=== PATIENT | female | born 1950 | race Caucasian/White ===

== ENCOUNTER → 2019-06-01 | Outpatient (CLI) | payer MEDICARE ==
[2019-06-01 20:32] LABS: Chol/HDL Ratio 3.68; LDL Cholesterol,Calculated 158.8 mg/dL (0.0-131.0); VLDL Calculation 18.2 mg/dL (5.00-40.00)
== END | disposition home or self-care (01) ==
LOC: LABWHC1 10:50
PROVIDERS: ATTEND Internal Medicine Clinical Cardiac Electrophysiology
DX: E78.5 Hyperlipidemia, unspecified (principal)
CPT/HCPCS: 36415; 80061

== ENCOUNTER 2021-03-22 17:44 | Inpatient (IN) | payer MEDICARE ==
[2021-03-22] MEDS ORDERED: SODIUM CHLORIDE 0.9% 1,000 ML IV ONE (18:07)
[2021-03-22] MEDS ORDERED: MORPHINE SULFATE 2 MG/ML SYRINGE IVP STA (18:18)
[2021-03-22 18:45] LABS: Basophils % (A) 0 %; Eosinophils # (A) 0.1 k/uL (0-0.7); Eosinophils % (A) 1 %; HCT 37.7 % (34.0-46.0); HGB 12.7 gm/dL (11.4-16.0); Lymphocytes # (A) 1.9 k/uL (1.0-4.8); Lymphocytes % (A) 13 %; MCHC 33.6 g/dL (31.0-37.0); MCV 92.3 fL (80.0-100.0); Monocytes # (A) 0.7 k/uL (0-1.0); Monocytes % (A) 5 %; Neutrophils # (A) 12.1 k/uL (1.3-7.7); Neutrophils % (A) 81 %; Platelet Count 254 k/uL (150-450); RBC 4.09 m/uL (3.80-5.40); RDW 12.4 % (11.5-15.5)
[2021-03-22 19:13] LABS: ALT 19 U/L (4-34); AST 23 U/L (14-36); African American GFR (CKD) >90 (>60 ml/min/1.73 sqM); Albumin 4.1 g/dL (3.5-5.0); Alkaline Phosphatase 74 U/L (38-126); Anion Gap 12 mmol/L; Blood Urea Nitrogen 19 mg/dL (7-17); Calcium 9.4 mg/dL (8.4-10.2); Carbon Dioxide 21 mmol/L (22-30); Chloride 103 mmol/L (98-107); Glucose 105 mg/dL (74-99); Non-African American GFR(CKD) 87 (>60 ml/min/1.73 sqM); Potassium 3.8 mmol/L (3.5-5.1); Sodium 136 mmol/L (137-145); Total Bilirubin 0.7 mg/dL (0.2-1.3); Total Protein 7.2 g/dL (6.3-8.2)
--- NOTE | 2021-03-22 19:16 | CT ---
EXAMINATION TYPE: CT brain wo con DATE OF EXAM: 03/22/2021 COMPARISON: None HISTORY: Altered mental status. CT DLP: 1074.4 mGycm Automated exposure control for dose reduction was used. There is some mild enlargement of the ventricles. There is no mass effect nor midline shift. There is no sign of intracranial hemorrhage. Calvarium is intact. There is mild thalamic calcification. Skull base is intact. IMPRESSION: Mild hydrocephalus. No obstructing lesion seen.
[2021-03-22 19:17] LABS: Partial Thromboplastin Time 22.8 sec (22.0-30.0); Prothrombin Time 10.4 sec (9.0-12.0)
--- NOTE | 2021-03-22 19:17 | XR ---
EXAMINATION TYPE: XR chest 2V DATE OF EXAM: 03/22/2021 COMPARISON: NONE HISTORY: Altered mental status. Confusion. TECHNIQUE: 2 views FINDINGS: Heart and mediastinum are normal. Lungs are clear. Diaphragm is normal. Bony thorax is inta ct. IMPRESSION: Normal chest.
[2021-03-22 21:50] LABS: Appearance,Urine Clear (Clear); Bilirubin,Urine Negative (Negative); Blood,Urine Negative (Negative); Color,Urine Yellow; Glucose,Urine (UA) Negative (Negative); Ketones,Urine 2+ (Negative); Leukocyte Esterase,Urine Negative (Negative); Nitrite,Urine Negative (Negative); Protein,Urine Negative (Negative); Specific Gravity,Urine 1.021 (1.001-1.035); Urobilinogen,Urine <2.0 mg/dL (<2.0)
[2021-03-22 22:09] LABS: Amphetamine Screen,Urine Not Detected (NotDetected); Barbiturate Screen,Urine Not Detected (NotDetected); Benzodiazepines Screen,Urine Detected (NotDetected); Cocaine Screen,Urine Not Detected (NotDetected); Methadone Screen, Urine Not Detected (NotDetected); Opiate Screen,Urine Detected (NotDetected); Oxycodone Screen, Urine Not Detected (NotDetected); Phencyclidine Screen,Urine Not Detected (NotDetected); Tricyclic Antidepressant,Urine Not Detected (NotDetected); Urn Cannabinoid Scrn Not Detected (NotDetected)
[2021-03-22] MEDS ORDERED: MORPHINE SULFATE 4 MG/ML SYRINGE IVP STA (22:37)
[2021-03-22] MEDS ORDERED: NALOXONE 0.4 MG/ML 1 ML VIAL IV PRN (22:56)
--- NOTE | 2021-03-22 22:56 | ED ---
Altered Mental Status HPI - General Chief Complaint: Altered Mental Status Stated Complaint: Falls Time Seen by Provider: 03/22/21 17:57 Source: family, EMS, RN notes reviewed Mode of arrival: EMS Limitations: no limitations - History of Present Illness Initial Comments: Patient is a 70-year-old female that presents to the emergency department via EMS for acute altered mental status with repeated falls. Patient is a poor historian and has to be coached through questions to get appropriate answers. She is alert 3 after some coaching. Daughter and both note the patient isn't compliant with taking her medications and is unsure if she has been taking more than prescribed or not taking them at all. Patient notes that she did hit her head several times when she fell. She denied taking any blood thinners. Patient does appear to be mildly confused upon exam. Patient denied any chest pain shortness of breath headache nausea vomiting diarrhea constipation fever fatigue chills. - Related Data Home Medications Medication Instructions Recorded Confirmed ALPRAZolam [Xanax] 1 mg PO TID PRN 03/22/21 03/22/21 Escitalopram [Lexapro] 10 mg PO DAILY 03/22/21 03/22/21 Omeprazole 40 mg PO DAILY 03/22/21 03/22/21 traZODone HCL 50 mg PO HS 03/22/21 03/22/21 Allergies Allergy/AdvReac Type Severity Reaction Status Date / Time No Known Allergies Allergy Verified 03/22/21 20:03 Review of Systems ROS Statement: Those systems with pertinent positive or pertinent negative responses have been documented in the HPI. ROS Other: All systems not noted in ROS Statement are negative. Past Medical History Past Medical History: Unable to Obtain History of Any Multi-Drug Resistant Organisms: None Reported Past Surgical History: Unable to Obtain Past Psychological History: No Psychological Hx Reported Smoking Status: Never smoker Past Alcohol Use History: None Reported Past Drug Use History: None Reported General Exam Limitations: no limitations General appearance: alert, in no apparent distress Head exam: Present: atraumatic, normocephalic, normal inspection Eye exam: Present: normal appearance, PERRL, EOMI. Absent: scleral icterus, conjunctival injection, periorbital swelling ENT exam: Present: normal exam, mucous membranes moist Neck exam: Present: normal inspection Respiratory exam: Present: normal lung sounds bilaterally. Absent: respiratory distress, wheezes, rales, rhonchi, stridor Cardiovascular Exam: Present: regular rate, normal rhythm, normal heart sounds. Absent: systolic murmur, diastolic murmur, rubs, gallop, clicks GI/Abdominal exam: Present: soft, normal bowel sounds. Absent: distended, tenderness, guarding, rebound, rigid Extremities exam: Present: normal inspection, full ROM, normal capillary refill. Absent: tenderness, pedal edema, joint swelling, calf tenderness Neurological exam: Present: alert. Absent: oriented X3 (Patient had a be coached through several questions to get correct answers.) Expanded Neurological exam: Present: inattentive Speech: Present: fluid speech Cranial nerves: EOM's Intact: Normal Cerebellar function: Finger to Nose: Normal, Heel to Franco: Normal Motor strength exam: RUE: 5, LUE: 5, RLE: 5, LLE: 5 Psychiatric exam: Present: normal affect, normal mood Skin exam: Present: warm, dry, intact, normal color. Absent: rash Course Vital Signs 03/22/21 17:50 Temperature 99 F Pulse Rate 69 Respiratory 18 Rate Blood Pressure 148/92 O2 Sat by Pulse 97 Oximetry Medical Decision Making - Medical Decision Making 70-year-old female to mental status with several falls over the past few days per Labs, chest x-ray, CT of the brain, 1 L normal saline ordered. Patient was given 2 mg of morphine for pain. Labs: White blood cells 15, rest labs unremarkable. Computed tomography scan shows mild hydrocephalus. Upon reevaluation patient is still confused. Daughter noted that she was making suicidal complaints EPS was notified. EPS will not admit. Case discussed with Dr. Vargas, patient will be admitted for acute altered mental status due to medication misuse. Dr. White was consulted and looks of the admit with neurology on consult. - Lab Data Result diagrams: 03/22/21 18:36 03/22/21 18:36 Lab Results 03/22/21 03/22/21 03/22/21 Range/Units 18:36 18:36 18:36 WBC 15.0 H (3.8-10.6) k/uL RBC 4.09 (3.80-5.40) m/uL Hgb 12.7 (11.4-16.0) gm/dL Hct 37.7 (34.0-46.0) % MCV 92.3 (80.0-100.0) fL MCH 31.0 (25.0-35.0) pg MCHC 33.6 (31.0-37.0) g/dL RDW 12.4 (11.5-15.5) % Plt Count 254 (150-450) k/uL MPV 9.0 Neutrophils % 81 % Lymphocytes % 13 % Monocytes % 5 % Eosinophils % 1 % Basophils % 0 % Neutrophils # 12.1 H (1.3-7.7) k/uL Lymphocytes # 1.9 (1.0-4.8) k/uL Monocytes # 0.7 (0-1.0) k/uL Eosinophils # 0.1 (0-0.7) k/uL Basophils # 0.0 (0-0.2) k/uL PT 10.4 (9.0-12.0) sec INR 1.0 (<1.2) APTT 22.8 (22.0-30.0) sec Sodium (137-145) mmol/L Potassium (3.5-5.1) mmol/L Chloride (98-107) mmol/L Carbon Dioxide (22-30) mmol/L Anion Gap mmol/L BUN (7-17) mg/dL Creatinine (0.52-1.04) mg/dL Est GFR (CKD-EPI)AfAm (>60 ml/min/1.73 sqM) Est GFR (CKD-EPI)NonAf (>60 ml/min/1.73 sqM) Glucose (74-99) mg/dL Calcium (8.4-10.2) mg/dL Total Bilirubin (0.2-1.3) mg/dL AST (14-36) U/L ALT (4-34) U/L Alkaline Phosphatase (38-126) U/L Troponin I (0.000-0.034) ng/mL Total Protein (6.3-8.2) g/dL Albumin (3.5-5.0) g/dL Urine Color Yellow Urine Appearance Clear (Clear) Urine pH 6.0 (5.0-8.0) Ur Specific [place] 1.021 (1.001-1.035) Urine Protein Negative (Negative) Urine Glucose (UA) Negative (Negative) Urine Ketones 2+ H (Negative) Urine Blood Negative (Negative) Urine Nitrite Negative (Negative) Urine Bilirubin Negative (Negative) Urine Urobilinogen <2.0 (<2.0) mg/dL Ur Leukocyte Esterase Negative (Negative) Urine Opiates Screen Detected H (NotDetected) Ur Oxycodone Screen Not Detected (NotDetected) Urine Methadone Screen Not Detected (NotDetected) Ur Propoxyphene Screen Not Detected (NotDetected) Ur Barbiturates Screen Not Detected (NotDetected) U Tricyclic Antidepress Not Detected (NotDetected) Ur Phencyclidine Scrn Not Detected (NotDetected) Ur Amphetamines Screen Not Detected (NotDetected) U Methamphetamines Scrn Not Detected (NotDetected) U Benzodiazepines Scrn Detected H (NotDetected) Urine Cocaine Screen Not Detected (NotDetected) U Marijuana (THC) Screen Not Detected (NotDetected) 03/22/21 03/22/21 Range/Units 18:36 18:36 WBC (3.8-10.6) k/uL RBC (3.80-5.40) m/uL Hgb (11.4-16.0) gm/dL Hct (34.0-46.0) % MCV (80.0-100.0) fL MCH (25.0-35.0) pg MCHC (31.0-37.0) g/dL RDW (11.5-15.5) % Plt Count (150-450) k/uL MPV Neutrophils % % Lymphocytes % % Monocytes % % Eosinophils % % Basophils % % Neutrophils # (1.3-7.7) k/uL Lymphocytes # (1.0-4.8) k/uL Monocytes # (0-1.0) k/uL Eosinophils # (0-0.7) k/uL Basophils # (0-0.2) k/uL PT (9.0-12.0) sec INR (<1.2) APTT (22.0-30.0) sec Sodium 136 L (137-145) mmol/L Potassium 3.8 (3.5-5.1) mmol/L Chloride 103 (98-107) mmol/L Carbon Dioxide 21 L (22-30) mmol/L Anion Gap 12 mmol/L BUN 19 H (7-17) mg/dL Creatinine 0.72 (0.52-1.04) mg/dL Est GFR (CKD-EPI)AfAm >90 (>60 ml/min/1.73 sqM) Est GFR (CKD-EPI)NonAf 87 (>60 ml/min/1.73 sqM) Glucose 105 H (74-99) mg/dL Calcium 9.4 (8.4-10.2) mg/dL Total Bilirubin 0.7 (0.2-1.3) mg/dL AST 23 (14-36) U/L ALT 19 (4-34) U/L Alkaline Phosphatase 74 (38-126) U/L Troponin I <0.012 (0.000-0.034) ng/mL Total Protein 7.2 (6.3-8.2) g/dL Albumin 4.1 (3.5-5.0) g/dL Urine Color Urine Appearance (Clear) Urine pH (5.0-8.0) Ur Specific [place] (1.001-1.035) Urine Protein (Negative) Urine Glucose (UA) (Negative) Urine Ketones (Negative) Urine Blood (Negative) Urine Nitrite (Negative) Urine Bilirubin (Negative) Urine Urobilinogen (<2.0) mg/dL Ur Leukocyte Esterase (Negative) Urine Opiates Screen (NotDetected) Ur Oxycodone Screen (NotDetected) Urine Methadone Screen (NotDetected) Ur Propoxyphene Screen (NotDetected) Ur Barbiturates Screen (NotDetected) U Tricyclic Antidepress (NotDetected) Ur Phencyclidine Scrn (NotDetected) Ur Amphetamines Screen (NotDetected) U Methamphetamines Scrn (NotDetected) U Benzodiazepines Scrn (NotDetected) Urine Cocaine Screen (NotDetected) U Marijuana (THC) Screen (NotDetected) - EKG Data -: EKG Interpreted by Me EKG shows normal: sinus rhythm Rate: normal EKG Comments: Ventricular rate 61 bpm, MN interval 146 ms, QRS duration 76 ms, QTC 442 ms, PRT axes 74/51/72. Normal sinus rhythm, normal ECG. - Radiology Data Radiology results: report reviewed, image reviewed Chest x-ray: Normal chest. CT of the brain: Mild hydrocephalus. No obstructing lesion seen. Disposition Clinical Impression: Altered mental status Disposition: ADMITTED IP TO THIS [facility] Condition: Stable Is patient prescribed a controlled substance at d/c from ED?: No Referrals: Harry Mora DO [Primary Care Provider] - 1-2 days Time of Disposition: 22:56
[2021-03-23] MEDS: SODIUM CHLORIDE 0.9% 1,000 ML IV SCH ×4 (02:21→23:01)
[2021-03-23] MEDS: ACETAMINOPHEN TAB 325 MG TAB PO PRN ×2 (09:08→16:54)
--- NOTE | 2021-03-23 10:55 | P.CNNES ---
History of Present Illness Consult date: 03/23/21 Requesting physician: Lb Williamson Reason for Consult: altered mental status History of Present Illness: This is a 70-year-old woman with history of hypertension, falls and bipolar, anxiety, depression who presented to the emergency department on 03/22/2021 for altered mental status and repeated falls. The history is obtained from patient's and her daughter who are at bedside. 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 He stated that the patient eventually notified him that she had a fall Tuesday and that according to the patient she had the new socks and it felt extremely slippery w hen she was walk-in and she her head that. As a result the patient's stated that she's been confused and repeating herself as well as having headache. Then the this past Tuesday the patient the had a fall in the bathroom and hit her head in that according to the but the patient de nied that. Patient stated that she's having pain over the left ankle from the fall but otherwise she denies any focal weakness. She had that previous falls in the past. According to the she has chronic neck pain. He feels her walking is unsteady after the fall. She is complaining of headache over the bilateral occipital region and she stated that the at the throbbing headache and that she feels like it has improved right now after getting the pain medication. Patient's the patient had the nausea as well as had episodes of vomiting. No fevers. No rash. No recent travels. No seizure history in the past or any seizure-like episodes recently. Patient denies of any urine incontinence or bowel incontinence. Patient states that she's doing well and she wants to go home. Patient is tangential as well as getting the history from the family was very difficult. Abdomen members stated that the patient either overdoses on medication or does not take her medication. She has a history of bipolar anal feel the patient is doing well from that perspective. Patient socially drinks alcohol and per the family she drinks just 1 drink a day. Denies uses any illicit drug use. She is on marijuana for her anxiety. She'll is on trazodone 50mg daily at bedtime, Lexapro 100 mg daily and Xanax 1 mg 3 times a day when necessary. Some of the workup in the hospital consisted of: Initial vital signs: Blood pressure 5 148/92, heart rate of 69, temperature of 99 Fahrenheit oral, respiratory of 18, pulse ox of 97% room air. Patient has been afebrile so far the in the ED. Initial white blood cell is 15.0 and it's predominantly neutrophilic. Sodium is 136, creatinine is 0.72, glucose is 105, calcium 9.4, AST 23, ALT of 19. Urinalysis is negative for urinary tract infection. Her drug screen is positive for opiates as well as benzos. Henriquez virus PCR was not detected. CT of the head is reported as mild hydrocephalus. No obstructing lesion seen. I personally reviewed the CT of the head and there is no intraparenchymal hemorrhage seen. There is no appreciable acute ischemia. Review of Systems Review of system: The 12 point system was reviewed and apparent positive and negative per HPI. Past Medical History Past Medical History: Unable to Obtain History of Any Multi-Drug Resistant Organisms: None Reported Past Surgical History: Unable to Obtain Past Psychological History: No Psychological Hx Reported Smoking Status: Never smoker Past Alcohol Use History: None Reported Past Drug Use History: None Reported Medications and Allergies Home Medications Medication Instructions Recorded Confirmed Type ALPRAZolam [Xanax] 1 mg PO TID PRN 03/22/21 03/22/21 History Escitalopram [Lexapro] 10 mg PO DAILY 03/22/21 03/22/21 History Omeprazole 40 mg PO DAILY 03/22/21 03/22/21 History traZODone HCL 50 mg PO HS 03/22/21 03/22/21 History Allergies Allergy/AdvReac Type Severity Reaction Status Date / Time No Known Allergies Allergy Verified 03/22/21 20:03 Physical Examination - Vital Signs Vital Signs: Vital Signs Temp Pulse Pulse Resp BP BP Pulse Ox 03/23/21 07:56 98.8 F 71 20 158/73 96 03/23/21 04:06 98.4 F 60 20 153/71 97 03/22/21 22:52 87 16 121/87 99 03/22/21 17:50 99 F 69 18 148/92 97 Intake and Output 03/22/21 03/23/21 03/23/21 22:59 06:59 14:59 Other: Voiding Method Toilet Weight 72.121 kg GENERAL: The patient is lying in bed and is mild to moderate acute distress. CHEST: The heart rate is regular rate rhythm. No murmurs to auscultation. No carotid bruit bilaterally. LUNG: Clear to auscultation bilaterally no wheezing noted throughout. Not labored breathing. ABDOMEN/GI: Bowel sounds present in all 4 quadrants. No tenderness to palpation throughout. PSYCH: Tangential. NEUROLOGICAL: Higher mental function: The patient is awake, alert, oriented to self, place and time. She is correctly stated name of current state. Correctly name objects (pen, watch and glasses). I had to repeat some of the questions since is tangential. Patient is following simple commands. No aphasia. Cranial nerves: The pupils are round, equal and reactive to light and accommodation. Visual lott are full to confrontation throughout. Extraocular movement is intact no nystagmus is noted. Facial sensation is normal to touch throughout. The facial strength is normal throughout. Hearing is moderately decreased bilaterally to hand rub. Tongue is midline and moved [id number] without any difficulty. No dysarthria is noted. Shoulder shrug is normal bilaterally. Motor: Gait was limited because of her cooperation but was not swaying towards right or left. The strength is 5 over 5 throughout. Normal tone and bulk. Cerebellum: Normal finger to nose heel to garcia bilaterally. Sensation: Sensation is normal to touch throughout. Reflexes (right/left): 2+ throughout except patellar are 3+ bilaterally. Plantars are mute bilaterally. Results - Laboratory Findings CBC and BMP: 03/22/21 18:36 03/22/21 18:36 Abnormal Lab Findings: Abnormal Labs 03/22/21 03/22/21 03/22/21 18:36 18:36 18:36 WBC 15.0 H Neutrophils # 12.1 H Sodium 136 L Carbon Dioxide 21 L BUN 19 H Glucose 105 H Urine Ketones 2+ H Urine Opiates Screen Detected H U Benzodiazepines Scrn Detected H Assessment and Plan Assessment: Altered Mental status with repeated falls. Encephalopathy of unknown etiology. Has leukocytosis but no fever. Cephalgia (possible result of fall). Rule out any intracranial process. Repeated Falls of unknown etiology Medication noncompliance (according to family she takes more than her scheduled or does not take her medication Hypertension Bipolar Anxiety Depression Plan: I ordered MRI and Cervical of the brain with and without STAT. Ordered MRA head to rule out any aneurysm. Ordered routine EEG. I'll not start the patient on an antiepileptic drug unless there is epileptiform discharges or seizure on the EEG. Ordered TSH, vitamin B12, folate, ammonia level and HbA1c. Neuro checks to be continued Consulted infection disease for her leukocytosis. Consider psych consultation because the family feels her bipolar is not controlled. Will defer the rest of the medical management to primary team Shan discussed with the patient as well as her family members ( and daughter) who are bedside Thank you for the consultation. Tj Dominguez MD Neuro-Hospitalist Time with Patient: Greater than 30
[2021-03-23] MEDS ORDERED: KETOROLAC 15 MG/ML 1 ML VIAL IVP STA (12:40)
[2021-03-23] MEDS: PANTOPRAZOLE 40 MG TABLET PO SCH (13:12)
[2021-03-23] MEDS: ALPRAZolam 1 MG TAB PO PRN ×2 (13:47→20:34)
[2021-03-23 15:27] LABS: African American GFR (CKD) >90 (>60 ml/min/1.73 sqM); Anion Gap 8 mmol/L; Blood Urea Nitrogen 16 mg/dL (7-17); Calcium 9.2 mg/dL (8.4-10.2); Carbon Dioxide 21 mmol/L (22-30); Chloride 106 mmol/L (98-107); Glucose 126 mg/dL (74-99); Non-African American GFR(CKD) >90 (>60 ml/min/1.73 sqM); Sodium 135 mmol/L (137-145)
[2021-03-23 15:45] LABS: Basophils # (A) 0.1 k/uL (0-0.2); Basophils % (A) 1 %; Eosinophils # (A) 0.1 k/uL (0-0.7); Eosinophils % (A) 1 %; HCT 35.7 % (34.0-46.0); HGB 12.4 gm/dL (11.4-16.0); Lymphocytes # (A) 2.5 k/uL (1.0-4.8); Lymphocytes % (A) 21 %; MCH 31.9 pg (25.0-35.0); MCHC 34.9 g/dL (31.0-37.0); MCV 91.5 fL (80.0-100.0); Mean Platelet Volume 8.4; Monocytes # (A) 0.8 k/uL (0-1.0); Monocytes % (A) 6 %; Neutrophils # (A) 8.1 k/uL (1.3-7.7); Neutrophils % (A) 69 %; Platelet Count 236 k/uL (150-450); RDW 12.9 % (11.5-15.5); WBC 11.7 k/uL (3.8-10.6)
[2021-03-23] MEDS ORDERED: LORazepam 2 MG/ML INJ IV PRN (18:33)
[2021-03-23] MEDS: HEPARIN SODIUM,PORCINE/PF 5,000 UNIT/0.5 ML SYRINGE SQ SCH (20:34)
[2021-03-23] MEDS: MORPHINE SULFATE 4 MG/ML SYRINGE IV PRN (20:39)
[2021-03-23 22:48] LABS: Folate, Serum >20.00 ng/mL (4.40-31.00)
--- NOTE | 2021-03-23 23:51 | P.HPIM ---
History of Present Illness H&P Date: 03/23/21 Chief Complaint: Fall Patient is a 70-year-old female with known history of anxiety, GERD was brought to the hospital by EMS due to altered mental status and frequent falls. Patient states that she clean her wood flavia and was slippery and suddenly fell on the floor hitting her head. Patient is somewhat poor historian. Patient's daughter is at bedside. Able to provide some of the history. Apparently she has been having multiple falls. Patient has not been taking her medications as prescribed. Denies any complaints of dizziness or lightheadedness. No headache. Patient is complaining of pain. No fever no chills. Denies any recent illnesses. No cough or sputum production. No chest pain or shortness of breath. Denies any bladder or bowel incontinence. CT brain showed mild hydrocephalus. No obstructing lesion seen. Chest x-ray showed normal chest. EKG showed normal sinus rhythm Laboratory showed WBC 15.0 hemoglobin 12.7 platelets 244 Chloride 103, bicarb 21 BUN 19 and creatinine 0.72 and blood sugar is 105 Troponin x1 - Ammonia less than 9 UA negative for infection UDS is positive for opiates and benzodiazepines. Coronavirus PCR not detected. Review of Systems Constitutional: Patient denies any fever or chills . No generalized weakness or weight loss. Abdomen: Patient denied nausea vomiting and diarrhea and abdominal pain. Cardiovascular: Patient denies any chest pain or short of breath no palpitations. Respiratory: patient denied any cough or sputum production. No shortness of breath Neurologic: Patient denied any numbness or tingling, Patient does complain of headache. No dizziness or lightheadedness. Complete review of systems could not be obtained from the patient except as per HPI. Past Medical History Past Medical History: Unable to Obtain History of Any Multi-Drug Resistant Organisms: None Reported Past Surgical History: Unable to Obtain Past Psychological History: No Psychological Hx Reported Smoking Status: Never smoker Past Alcohol Use History: None Reported Past Drug Use History: None Reported - Past Family History Mother Family Medical History: CVA/TIA, Hypertension, Thyroid Disorder Additional Family Medical History / Comment(s): schizophrenia Medications and Allergies Home Medications Medication Instructions Recorded Confirmed Type ALPRAZolam [Xanax] 1 mg PO TID PRN 03/22/21 03/22/21 History Escitalopram [Lexapro] 10 mg PO DAILY 03/22/21 03/22/21 History Omeprazole 40 mg PO DAILY 03/22/21 03/22/21 History traZODone HCL 50 mg PO HS 03/22/21 03/22/21 History Allergies Allergy/AdvReac Type Severity Reaction Status Date / Time No Known Allergies Allergy Verified 03/22/21 20:03 Physical Exam Vitals: Vital Signs Temp Pulse Pulse Resp BP BP Pulse Ox 03/23/21 07:56 98.8 F 71 20 158/73 96 03/23/21 04:06 98.4 F 60 20 153/71 97 03/22/21 22:52 87 16 121/87 99 03/22/21 17:50 99 F 69 18 148/92 97 Intake and Output 03/22/21 03/23/21 03/23/21 22:59 06:59 14:59 Other: Voiding Method Toilet Weight 72.121 kg PHYSICAL EXAMINATION: Patient is lying in the bed comfortably, no acute distress, awake alert and oriented.. HEENT: Normocephalic. Neck is supple. Pupils reactive. Nostrils clear. Oral cavity is moist. Neck reveals no JVD, carotid bruits, or thyromegaly. CHEST EXAMINATION: Trachea is central. Symmetrical expansion. Lung lott clear to auscultation and percussion. CARDIAC: Normal S1, S2 with no gallops. No murmurs ABDOMEN: Soft. Bowel sounds normal. No organomegaly. No abdominal bruits. Extremities: reveal no edema. No clubbing or cyanosis Neurologically awake, alert, oriented x3 with well-coordinated movements. No focal deficits noted Skin: No rash or skin lesions. Psychiatric: Cooperative. Anxious Musculoskeletal: No joint swelling or deformity. Normal range of motion. Results CBC & Chem 7: 03/23/21 14:05 03/23/21 14:05 Labs: Abnormal Lab Results - Last 24 Hours (Table) 03/22/21 03/22/21 03/22/21 Range/Units 18:36 18:36 18:36 WBC 15.0 H (3.8-10.6) k/uL Neutrophils # 12.1 H (1.3-7.7) k/uL Sodium 136 L (137-145) mmol/L Carbon Dioxide 21 L (22-30) mmol/L BUN 19 H (7-17) mg/dL Glucose 105 H (74-99) mg/dL Urine Ketones 2+ H (Negative) Urine Opiates Screen Detected H (NotDetected) U Benzodiazepines Scrn Detected H (NotDetected) Thrombosis Risk Factor Assmnt - DVT/VTE Prophylaxis DVT/VTE Prophylaxis: Pharmacologic Prophylaxis ordered Assessment and Plan Assessment: Altered mental status with frequent falls. Rule out intracranial etiology. Possible withdrawal from Xanax use. Medication noncompliance as per family. Anxiety/bipolar disorder Depression Hypertension controlled DVT prophylaxis Heparin subcu Plan: Patient will be continued neurochecks and stroke work-up including MRI and MRA of the brain was ordered to rule out aneurysm. EEG was ordered. Neurology is on board. TSH B12 folate and ammonia inhalants levels within normal limits. Leukocytosis is improving. Likely reactive. Chest x-ray and UA negative. Patient has been afebrile. Start back on Xanax and follow-up closely. Time with Patient: Greater than 30
[2021-03-24] MEDS: MORPHINE SULFATE 4 MG/ML SYRINGE IV PRN ×2 (04:52→08:21)
[2021-03-24] MEDS: SODIUM CHLORIDE 0.9% 1,000 ML IV SCH ×3 (07:20→23:54)
[2021-03-24] MEDS: PANTOPRAZOLE 40 MG TABLET PO SCH (08:19)
--- NOTE | 2021-03-24 08:20 | P.CONS ---
History of Present Illness - Reason for Consult Consult date: 03/23/21 leukocytosis Requesting physician: Tj Dominguez - Chief Complaint weakness and falls x 1 week - History of Present Illness History of present illness : Patient is a 70-year-old female who has been brought into the ER by the family with concern for mental status changes and patient did have repeated falls apparently the patient did have a fall twice mostly falling backwards hitting the back of her head patient denies any loss of consciousness patient be complaining of pain into the posterior back and neck area more of a dull aching 5-6 out of 10 and no radiation patient denies having any fever or any chills but denies having any URI symptoms no chest pain sh ortness with minimal cough no no nausea no vomiting no abdominal pain or diarrhea on presentation to the hospital the patient was afebrile and no fever has been recorded subsequently patient however did have white count of 15,000 yesterday with left shift yesterday however the white count has came down to 11.7 today patient did have a mild elevated BUN and creatinine was normal liver enzymes are normal urine was negative urine drug screen was positive for opiates and benzos gonzalez PCR was negative patient did have a CT of the brain that was negative for any bleed chest x-ray was negative infectious disease was consulted because of her elevated white count and need for antibiotic therapy Review of system: CONSTITUTIONAL: Positive for weakness denies fever. EYES: No complaint. ENT: No complaint. RESPIRATORY: No complaint. CARDIOVASCULAR: No complaint. GENITOURINARY: No complaint. GASTROINTESTINAL: No complaint. MUSCULOSKELETAL: No complaint. INTEGUMENTARY: No complaint. PSYCHOLOGIC: No complaint. ENDOCRINE: No complaint. NEUROLOGIC: As per history of present illness. Past medical history : Reviewed, documented below Past surgical history : Reviewed, documented below Social history: Reviewed, documented below Medications: Reviewed, as documented below EXAMINATION: Vital sigans= Reviewed and documented below GENERAL DESCRIPTION: Elderly female lying in bed, no distress. No tachypnea or accessory muscle of respiration use. HEENT: Shows Pallor , no scleral icterus. Oral mucous membrane is dry. NECK: Trachea central, no thyromegaly. LUNGS: Unlabored breathing. Clear to auscultation anteriorly. No wheeze or crackle. HEART: S1, S2, regular rate and rhythm. ABDOMEN: Soft, no tenderness , guarding or rigidity EXTREMITIES: No edema of feet. SKIN: No rash, no masses palpable. NEUROLOGICAL: The patient is awake, alert, oriented x3, mood and affect normal. LABS AND RADIOLOGY: Reviewed results see below Assessment : Patient is a 70-year woman who was brought to the hospital with mental status changes and this patient did have a multiple falls patient urine is positive for benzo and opiates, patient did have a white count on presentation the hospital yesterday however the white count has come down to 2 almost normal this morning without any antibiotic therapy patient did not have any fever no localizing signs and symptoms of infection and initial work-up including a chest x-ray UA and Covid testing has been negative patient currently do not have any evidence of cellulitis no joint swelling abdominal soft on clinical examination Plan: 1-we will obtain blood culture CRP procalcitonin to complete the work-up 2-hold on any systemic antibiotic therapy as no obvious focus of infection and the white was already trending down without antibiotic therapy 3-gentle IV fluid We will follow on clinical condition and cultures to further adjust medication if needed Thank you for this consultation we will follow the patient along with you Past Medical History Past Medical History: Unable to Obtain History of Any Multi-Drug Resistant Organisms: None Reported Past Surgical History: Unable to Obtain Past Psychological History: No Psychological Hx Reported Smoking Status: Never smoker Past Alcohol Use History: None Reported Past Drug Use History: None Reported - Past Family History Mother Family Medical History: CVA/TIA, Hypertension, Thyroid Disorder Additional Family Medical History / Comment(s): schizophrenia Medications and Allergies Home Medications Medication Instructions Recorded Confirmed Type ALPRAZolam [Xanax] 1 mg PO TID PRN 03/22/21 03/22/21 History Escitalopram [Lexapro] 10 mg PO DAILY 03/22/21 03/22/21 History Omeprazole 40 mg PO DAILY 03/22/21 03/22/21 History traZODone HCL 50 mg PO HS 03/22/21 03/22/21 History Allergies Allergy/AdvReac Type Severity Reaction Status Date / Time No Known Allergies Allergy Verified 03/22/21 20:03 Physical Exam Vitals: Vital Signs Temp Pulse Pulse Resp BP BP Pulse Ox 03/23/21 07:56 98.8 F 71 20 158/73 96 03/23/21 04:06 98.4 F 60 20 153/71 97 03/22/21 22:52 87 16 121/87 99 03/22/21 17:50 99 F 69 18 148/92 97 Intake and Output 03/22/21 03/23/21 03/23/21 22:59 06:59 14:59 Other: Voiding Method Toilet Weight 72.121 kg Results CBC & Chem 7: 03/23/21 14:05 03/23/21 14:05 Labs: Abnormal Lab Results - Last 24 Hours (Table) 03/22/21 03/22/21 03/22/21 Range/Units 18:36 18:36 18:36 WBC 15.0 H (3.8-10.6) k/uL Neutrophils # 12.1 H (1.3-7.7) k/uL Sodium 136 L (137-145) mmol/L Carbon Dioxide 21 L (22-30) mmol/L BUN 19 H (7-17) mg/dL Glucose 105 H (74-99) mg/dL Urine Ketones 2+ H (Negative) Urine Opiates Screen Detected H (NotDetected) U Benzodiazepines Scrn Detected H (NotDetected)
[2021-03-24] MEDS: HEPARIN SODIUM,PORCINE/PF 5,000 UNIT/0.5 ML SYRINGE SQ SCH ×2 (10:36→21:00)
--- NOTE | 2021-03-24 10:41 | MR ---
EXAMINATION TYPE: MR angio head wo con DATE OF EXAM: 03/24/2021 COMPARISON: CT brain 2 days ago. HISTORY: Headache, rule out aneurysm TECHNIQUE: Time of flight images focusing on the [place] of [place] were performed without contrast.. 2-D and 3-D postprocessing imaging is performed. FINDINGS: There is dominant left vertebral artery. Vertebral arteries are both patent to basilar junc tion. There is small caliber but patent left posterior communicating artery. There is hypoplastic rig ht posterior communicating artery. No significant focal stenosis or aneurysm is seen. Anterior circulation shows hypoplastic right A1 segment with filling of the A2 segment due to patent anterior communicating artery. There is focal saccular 3.1 x 3.1 mm aneurysm along course of the dist al left internal carotid artery seen best image 87. There is suspected fenestrated anterior communica ting artery with 2 distinct vessels imaged 106 and 109 noted. There is mild cylindrical dilatation or aneurysm to the left A2 segment measuring up to 2.2 mm at image 126 and measuring closer to 1.5 mm p roximal and distal to this. 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 Cylindrical prominence or mild aneurysmal change to the left A2 segment up to 2.2 mm. Patent fenestrated anterio r communicating artery suspected.
[2021-03-24 10:53] LABS: African American GFR (CKD) 107.8 (60.0-200.0); Albumin 3.6 g/dL (3.8-4.9); Albumin/Globulin Ratio 1.44 (1.60-3.17); Anion Gap 11.8 mmol/L (4.00-12.00); C Reactive Protein 2.2 mg/dL (0.00-0.80); Calcium 8.4 mg/dL (8.7-10.3); Carbon Dioxide 20.2 mmol/L (21.6-31.8); Globulin 2.5 g/dL (1.6-3.3); Potassium 3.8 mmol/L (3.5-5.5); Total Bilirubin 0.4 mg/dL (0.30-1.20); Total Protein 6.1 g/dL (6.2-8.2)
--- NOTE | 2021-03-24 11:13 | MR ---
EXAMINATION TYPE: MR brain/cspine wo/w DATE OF EXAM: 03/24/2021 COMPARISON: CT brain 2 days ago HISTORY: Headache, confusion and falls. Neck pain. TECHNIQUE: Multiplanar, multisequence images of the brain and brainstem and cervical spine are all performed wi thout and with IV contrast, utilizing 7.5 mL intravenous Gadavist . FINDINGS: BRAIN: Diffusion weighted images demonstrate no evidence of a recent infarct or other diffusion abnormality. The ventricular system and cisternal spaces are normal in size and appearance. The brain volume is age appropriate. Some scattered small foci of T2 hyperintensity throughout the white matter bilateral ly. Some confluent appearance of periventricular level is seen bilaterally. Lesions nonspecific in ap pearance and distribution. Midline structures demonstrate normal morphology. The craniocervical junction appears within normal limits. Post contrast images demonstrate no abnormal enhancement. The dural venous sinuses appear pa tent. The visualized sinuses are clear and the globes are intact. IMPRESSION: Mild nonspecific white matter changes presumed on the basis of product of chronic small v essel ischemic change in patient of this age. No MRI evidence for recent infarct. C-SPINE: Images are degraded by patient motion artifact. FINDINGS: Sagittal images of the cervical spine show the craniocervical junction to appear within nor mal limits. The cervical and upper thoracic spinal cord is normal in caliber and signal. There is sl ight grade 1 retrolisthesis C4 on C5. There is levoconvex scoliosis centered in the upper thoracic sp ine. The vertebral body heights are normal. Akhb-vz-nqnqnkwo multilevel disc space narrowing and ant erior spurring greatest at C5-C6 level where there is some heterogeneous Modic type II endplate parry es. No suspicious postcontrast enhancement. Axial images show artifact degradation. Images at C2-C3 level are likely within normal limits. Axial images at C3-C4 level showed broad based posterior disc protrusion and uncovertebral facet dege nerative changes, there is effacement of the anterior thecal sac and mild to moderate left-sided neur al foraminal narrowing. Axial images at C4-C5 level shows broad-based right paracentral disc protrusion effacing anterolatera l thecal sac with uncovertebral facet degenerative changes and spondylolisthesis causing wevu-io-kviq rate bilateral neural foraminal narrowing. Axial images at C5-C6 level broad-based posterior disc protrusion effaces the anterior thecal sac wit h posterior spurring, there is uncovertebral facet degenerative changes, there is qovc-je-kmkccftt ri ght greater than left bilateral neural foraminal narrowing. Axial images at C6-C7 level show broad-based right paracentral disc protrusion effacing the anterior thecal sac, there is yvyf-pb-pylrpebz bilateral neural foraminal narrowing. Axial images at C7-T1 level appear within normal limits. IMPRESSION: Suboptimal study as there is motion artifact degradation. Spondylolisthesis C5-C6 levels . Multilevel degenerative changes greatest C3-C4 through C6-C7 level as detailed above. No suspicious enhancement seen.
[2021-03-24 12:34] LABS: Basophils # (A) 0.05 X 10*3/uL (0.00-0.10); Basophils % (A) 0.4 %; Eosinophils # (A) 0.22 X 10*3/uL (0.04-0.35); HGB 10.8 g/dL (12.0-15.0); Lymphocytes # (A) 1.71 X 10*3/uL (0.90-5.00); Lymphocytes % (A) 15.2 %; MCH 29.7 pg (27.0-32.0); MCHC 32.7 g/dL (32.0-37.0); MCV 90.7 fL (80.0-97.0); Monocytes # (A) 0.76 X 10*3/uL (0.20-1.00); Monocytes % (A) 6.8 %; Neutrophils # (A) 8.45 X 10*3/uL (1.80-7.70); Neutrophils % (A) 75.3 %; Platelet Count 155 X 10*3/uL (140-440); RBC 3.64 X 10*6/uL (4.10-5.20); RDW 12.8 % (11.5-14.5); WBC 11.22 X 10*3/uL (4.50-10.00)
--- NOTE | 2021-03-24 12:50 | EEG ---
ELECTROENCEPHALOGRAM REPORT DATE OF SERVICE: 03/24/2021 CLINICAL HISTORY: This is a 70-year-old woman with altered mental status. The video EEG is obtained to evaluate for seizure epileptiform activity. RELEVANT MEDICATION: The patient is on Xanax. Otherwise, the patient is not on any antiepileptic drugs. EEG TYPE: A routine 21-channel EEG is performed with video using the 10/20 electrode placement system. DESCRIPTION: Awake state is only obtained. During awake state, the background consists of 8.5 to 9 hertz activity that is well modulated and well sustained. There is no physiological is stage II sleep architecture. There is no focal slowing. There is mild to moderate diffuse myogenic artifact. Interictal and ictal is none. ACTIVATION PROCEDURE: Photic stimulation and hyperventilation are not performed. CLINICAL INTERPRETATION: This is a normal routine EEG. There are no focal slowing, epileptiform discharges or seizure on the EEG. Clinical correlation is recommended. TEODORA / FARIBA: [id number] / JACOB
[2021-03-24] MEDS: ACETAMINOPHEN TAB 325 MG TAB PO PRN ×2 (13:17→21:00)
[2021-03-24] MEDS: ALPRAZolam 1 MG TAB PO PRN (13:17)
--- NOTE | 2021-03-24 13:46 | P.CN ---
Psychiatric Consult - . Consult date: 03/24/21 Consult:: 03/24/21 12:04 IDENTIFYING DATA: This patient is a 70-year-old female who currently lives with her and house has 2 kids. REASON FOR REFERRAL: Psychiatry was consulted for "bipolar" HISTORY OF PRESENT ILLNESS: The patient presented to the hospital initially on 03/22 for altered mental status and falls. Patient apparently was a poor historian in the ER. Patient was oriented 3. Apparently patient's and daughter complained that patient has been noncompliant with her medications and possibly taking too many or none at all. Patient's UA was negative and UDS was positive for opioids. It was also positive for benzodiazepines. Patient's white blood cell count was elevated on admission. Patient had a computed tomography scan of her brain which showed mild hydrocephalus however no acute changes. Patient's nurse claims that patient has been difficult to redirect and disorganized. Patient's daughter Katy was able to speak to conventional mortgage underwriter outside the room today. She claims that patient has a history of bipolar disorder and was previously hospitalized at [facility] in 2013. She states that the patient is under treated and not seeing a psychiatrist. She claims that there is a strong history of mental illness in the family. She also states that patient does not take medications and has poor insight and has been more confused now. Patient was seen sitting at the bedside and was reluctant to speak to conventional mortgage underwriter. She states that "I can't talk to you I have a headache". She spoke about her alcoholic and then having problems briefly however patient was rambling and tangential and having loose associations. She was fairly inappropriate with conventional mortgage underwriter and intrusive. She was also grandiose speaking about wanting to "by myself expensive close". She told several times that she does not want to talk to him and to leave the room and she was demonstrating very poor insight into her mental illness and need for treatment. She had poor reality testing. She states that she sleeps 8 hours a night and has a fair appetite . At this time patient denies any suicidal or homical ideations, intent or plan. Patient denies any auditory, visual hallucinations and denies any paranoia or delusions. Patients admits to using no recreational drugs. She ended the interview early by walking to the bathroom abruptly. PAST PSYCHIATRIC HISTORY: Patient has a a history of bipolar disorder. Patient is currently on trazodone Lexapro and Xanax. She does not see a psychiatrist and follows up with her primary care physician. She was previously hospitalized psychiatrically at [facility] in 2013. Patient denies any history of suicide attempts in the past. PAST MEDICAL HISTORY: As per hospitalist H&P. ALLERGIES: as per EMR. CHEMICAL DEPENDENCY HISTORY: as per HPI. FAMILY PSYCHIATRIC/SUBSTANCE USE HISTORY: As per daughter there is a strong mental health history in the family of schizophrenia and bipolar. SOCIAL HISTORY: Patient did not cooperate with this part of the interview and walked away. MENTAL STATUS EXAM: General Appearance: Patient appears to be stated age is alert, uncooperative and reluctant to speak. Patient appears to have poor hygiene and grooming wearing hospital gown with poor eye contact. Poor dentition Behavior: Uncooperative and hostile toward conventional mortgage underwriter. Speech: Patient's speech is fluent and nonpressured. Mood/Affect: Patient reports their mood is "fine", affect is incongruent Suicidality/Homicidality: Patient denies having any suicidal or homicidal ideation intent or plan. Perceptions: Patient denies any visual hallucinations and denies any auditory hallucinations Though content/process: Judgment, loose associations. Grandiose and flight of ideas. Memory and concentration: AOX3, poor attention span. Cannot spell "WORLD" backwards Judgment and insight: poor IMPRESSIONS: Bipolar disorder unspecified Possible benzodiazepine abuse PLAN: -At this time patient DOES meet criteria for inpatient psychiatric admission. -Patient DOES NOT have decision making capacity at this time and is unable to reason through and communicate/appreciate the risks, benefits and alternatives to treatment. -Delirium precautions recommended with patient including - avoiding use of narcotics and [employer] sedatives, limit anticholinergic medications when possible, frequent re-orientation, minimize use of restraints, open window shades during the day and close them at night -Would recommend the following medication changes/additions: We'll hold off on medications until patient is transferred to the mental health unit. will add prn Haldol and ativan for now for agitation/aggression. -Continue 1:1 sitter for safety and elopment tell patient is transferred to the mental health unit -Cannot leave AMA at this time. Patient will need a petition and certification if attempting to leave AMA. -When medically stable, patient is eligible for transfer to a psych bed when available. -Communicated plan to patient's nurse -Psychiatry will sign off at this time -Please contact with any questions.
[2021-03-24] MEDS ORDERED: LORazepam 2 MG/ML INJ IM PRN (13:48)
[2021-03-24] MEDS ORDERED: HALOPERIDOL LACTATE 5 MG/ML 1 ML VIAL IM PRN (13:48)
--- NOTE | 2021-03-24 14:13 | P.PN ---
Subjective Progress Note Date: 03/24/21 The patient is seen at bedside and she feels she is doing about the same. She continues to be occupied by her significant other and her daughter and they feels she is about the same. The daughter states the patient is tolerating Tylenol PRN for headaches and patient was given Morphine but does not want her to get Morphine. She is talking in tangential. Per the nurse the psychiatry team evaluated her and they felt she need psych admission. Per the family members patient has chronic neck pain and only sees a chiropractor therapy. Objective - Vital Signs Vital signs: Vital Signs Temp 98.9 F 03/24/21 07:45 Pulse 55 L 03/24/21 07:45 Resp 18 03/24/21 07:45 BP 152/65 03/24/21 07:45 Pulse Ox 92 L 03/24/21 07:45 Intake & Output 03/23/21 03/24/21 03/24/21 18:59 06:59 18:59 Intake Total 500 600 Balance 500 600 Weight 72.121 kg Intake: Oral 500 600 Other: Voiding Method Toilet Toilet Toilet # Voids 2 2 - Exam GENERAL: The patient is lying in bed and is mild to moderate acute distress. NEUROLOGICAL: Higher mental function: The patient is awake, alert, oriented to self, place and time. She is correctly stated name of current state. Correctly name objects (pen, watch and glasses). I had to repeat some of the questions since is tangential. Patient is following simple commands. No aphasia. Cranial nerves: The pupils are round, equal and reactive to light and accommodation. Visual lott are full to confrontation throughout. Extraocular movement is intact no nystagmus is noted. Facial sensation is normal to touch throughout. The facial strength is normal throughout. Hearing is moderately decreased bilaterally to hand rub. Tongue is midline and moved pqkh-si-hphe without any difficulty. No dysarthria is noted. Shoulder shrug is normal bilaterally. Motor: Gait was limited because of her cooperation but was not swaying towards right or left. The strength is 5 over 5 throughout. Normal tone and bulk. Cerebellum: Normal finger to nose heel to garcia bilaterally. Sensation: Sensation is normal to touch throughout. Reflexes (right/left): 2+ throughout except patellar are 3+ bilaterally. Plantars are mute bilaterally. WORK-UP: Red blood cell folate is not home for which is considered a high. Serum folate is more than 20. Vitamin B12 is 722. TSH is 0.773. Hemoglobin A1c 6.2. Ammonia level is less than 9. MRI of the brain with and without is reported as mild nonspecific white matter changes presumed on the basis of product chronic small vessel ischemic change in the patient of this age. No MRI evidence for recent infarct. MRI of the cervical spine is reported as suboptimal study as there is motion artifact degradation. Spondylolisthesis C5-C6 levels. Multilevel degenerative changes greatest C3-C4 through C6-C7 level as detailed above. No cysts basis and has been seen. And is mild to moderate degree in the body of the report. Per Jamin reviewed the MRI of the cervical spine and yes there is motion artifact but there felt between C4 to C6 there is at least moderate spondylosis. MRA of the head is reported as confirmation of saccular 3.1 mm aneurysm distal l eft internal carotid artery. Cylindrical prominence or mild aneurysm change to the left A2 segment up to 2.2 mm. Patent fenestrated anterior communicating artery suspected. - Labs CBC & Chem 7: 03/24/21 06:30 03/24/21 06:30 Labs: Abnormal Lab Results - Last 24 Hours (Table) 03/23/21 03/23/21 03/23/21 Range/Units 11:18 11:18 14:05 WBC 11.7 H (3.8-10.6) k/uL RBC (4.10-5.20) X 10*6/uL Hgb (12.0-15.0) g/dL Hct (37.2-46.3) % Neutrophils # 8.1 H (1.3-7.7) k/uL Sodium (137-145) mmol/L Carbon Dioxide (22-30) mmol/L Glucose (74-99) mg/dL Hemoglobin A1c 6.2 H (4.0-6.0) % Calcium (8.7-10.3) mg/dL C-Reactive Protein (0.00-0.80) mg/dL Total Protein (6.2-8.2) g/dL Albumin (3.8-4.9) g/dL Albumin/Globulin Ratio (1.60-3.17) g/dL RBC Folate 904 H (280 - 791) ng/mL 1103/24/21 03/24/21 Range/Units 14:05 06:30 06:30 WBC 11.22 H (3.8-10.6) k/uL RBC 3.64 L (4.10-5.20) X 10*6/uL Hgb 10.8 L (12.0-15.0) g/dL Hct 33.0 L (37.2-46.3) % Neutrophils # 8.45 H (1.3-7.7) k/uL Sodium 135 L (137-145) mmol/L Carbon Dioxide 21 L 20.2 L (22-30) mmol/L Glucose 126 H 118 H (74-99) mg/dL Hemoglobin A1c (4.0-6.0) % Calcium 8.4 L (8.7-10.3) mg/dL C-Reactive Protein 2.20 H (0.00-0.80) mg/dL Total Protein 6.1 L (6.2-8.2) g/dL Albumin 3.6 L (3.8-4.9) g/dL Albumin/Globulin Ratio 1.44 L (1.60-3.17) g/dL RBC Folate (280 - 791) ng/mL Assessment and Plan Assessment: Altered Mental status with repeated falls. Encephalopathy of unknown etiology. Has leukocytosis but no fever. 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 Cylindrical prominence or mild aneurysm change to the left A2 segment up to 2.2 mm per MRA) Cephalgia (possible result of fall) Repeated Falls of unknown etiology Cervical spondylosis and I felt was most likely moderate in severity at least at C4 C5 to C6 Newly diagnosed of borderline diabetes mellitus (HbA1c: 6.2) Medication noncompliance (according to family she takes more than her scheduled or does not take her medication Hypertension Bipolar Anxiety Depression Plan: Routine EEG Preliminary report: Normal. Consulted orthopedic team for the cervical spondylosis. Neuro checks to be continued Infection disease team in on board. Psych team is consulted. Will defer the rest of the medical management to primary team. Upon discharge the patient needs to follow-up with a neurologist as an outpatient within 1-2 weeks. She needs to follow-up with intervention neurologist as an outpatient for further workups last management of her intracranial aneurysm (Recommend following up at [facility] and contact number is [phone]) and to follow-up within 1-2 weeks after discharge. Plan is discussed with the patient as well as her family members (significant other and daughter) who are bedside Tj Dominguez MD Neuro-Hospitalist Time with Patient: Less than 30
[2021-03-24] MEDS: HYDROcodone/APAP 5-325MG 1 EACH TAB PO PRN (15:21)
--- NOTE | 2021-03-24 16:29 | P.CNOR ---
History of Present Illness - [facility] Consult date: 03/24/21 Consult reason: other (Abnormal cervical spine MRI findings) History of present illness: Patient is a 70-year-old female who was admitted to [facility] a few days ago with regards to altered mental status. Patient has many medical providers on this case, this including internal medicine, infectious disease, neurology, psychiatrics. After reviewing the other medical provider notes, it was determined there was a high concern for multiple falls over the last week or 2. Patient does live at [facility] with her , her is a truckdriver and not around very much. Patient has a known diagnosis of bipolar, anxiety and depression. There was concern that the patient's mental status had been declining over the last week or so, she began repeating herself quite obtain and also being very confused. She also had been complaining of headaches. She was brought to the hospital for further evaluation. After being evaluated by other medical specialties, neurology did order a brain and cervical spine MRI. MRI report didn't demonstrate multilevel cervical spine spondylosis, we were consulted for this reason. Patient was evaluated today at bedside, the patient's daughter and other family members were present, she also has a sitter present. She is having a accurate review of systems along with history of present illness was very difficult, patient was very sporadic during the exam, she was repeating herself on multiple occasions and not answering questions or following directions occasions. Patient denies any previous surgery of the cervical spine. She has been seeing a chiropractor with regards to generalized neck pain. She states that she has noticed a little bit of numbness and tingling in the right upper extremity, she states that it's not constant. She denies any radiating pain involving the bilateral upper extremities. She denies any obvious weakness of the bilateral upper extremities. She states that the lower extremities feel okay, she notices no obvious weakness. She denies any pain involving the lower back or bilateral lower extremities. She denies any loss of bowel or bladder function. She denies any genital or peroneal numbness or tingling. Patient has no other orthopedic complaints. I did spend some time with the daughter asking specific questions related to the current issues. There is concern for possible diagnosis of early onset dementia and schizophrenia. There is also concern that the patient has been not taking her medications as prescribed. She's had multiple falls over the last year or so. She's not complained at any specific time of worsening cervical, thoracic or lumbar pain. Patient did have a hysterectomy back in 2019, there was a questionable diagnosis of cancer, this has not been confirmed to the patient's jerod howard. Patient's daughter states that she's been in contact with the social work supervisor with regards to guardianship. Patients daughter did state that the patient's has a pretty detailed medical and psychiatric history. Review of Systems Constitutional: Reports as per HPI Past Medical History Past Medical History: Unable to Obtain Additional Past Medical History / Comment(s): bipolar History of Any Multi-Drug Resistant Organisms: None Reported Past Surgical History: Unable to Obtain Additional Past Surgical History / Comment(s): hysterectomy,cesarian section Past Psychological History: No Psychological Hx Reported Smoking Status: Never smoker Past Alcohol Use History: None Reported Past Drug Use History: None Reported - Past Family History Mother Family Medical History: CVA/TIA, Hypertension, Thyroid Disorder Additional Family Medical History / Comment(s): schizophrenia Medications and Allergies Home Medications Medication Instructions Recorded Confirmed Type ALPRAZolam [Xanax] 1 mg PO TID PRN 03/22/21 03/22/21 History Escitalopram [Lexapro] 10 mg PO DAILY 03/22/21 03/22/21 History Omeprazole 40 mg PO DAILY 03/22/21 03/22/21 History traZODone HCL 50 mg PO HS 03/22/21 03/22/21 History Allergies Allergy/AdvReac Type Severity Reaction Status Date / Time No Known Allergies Allergy Verified 03/22/21 20:03 Physical Examination Physical exam was difficult to assess due to patient's current mental state. She was very sporadic during the exam is very difficult to elementary instructional coach her through the exam Gen: AOx3, NAD VSS stable at this time Palpation: Patient demonstrated no significant tenderness to the midline and paraspinal region of the cervical, thoracic or lumbar spine Patient demonstratescontinued tenderness with palpation of the bilateral upper and lower extremities ROM: Full range of motion in all major muscle groups of the bilateral upper extremities Full range of motion in all major muscle groups of the bilateral lower extremities Sensory Exam: Senory exam to light touch is intact C5-T1 Senosry exam to light touch is intact L2-S1 Motor: 4+5 strength appreciated in the left upper extremity with shoulder elevation, shoulder abduction, elbow flexion, elbow extension, wrist extension, wrist flexion, finger intrinsics 4/5 strength is appreciated in the right upper extremity with shoulder elevation and shoulder abduction, 4+/5 strength is appreciated with elbow extension, elbow flexion, wrist extension, wrist flexion, finger intrinsics 4+/5 strength appreciated in the bilateral lower extremities with hip flexion, knee flexion, knee extension, plantar flexion, dorsiflexion, EHL, FHL Reflexes: 2/4 in all UE and LE, 3/4 bilateral patellar reflexes Negative Jose's bilaterally Negative Babinski bilaterally Negative clonus bilaterally Special Test: Logroll maneuver the bilateral lower extremities reproduces pain she has negative straight leg raise bilaterally Results - Labs Labs: Abnormal Lab Results - Last 24 Hours (Table) 03/23/21 03/23/21 03/24/21 Range/Units 11:18 11:18 06:30 WBC 11.22 H (4.50-10.00) X 10*3/uL RBC 3.64 L (4.10-5.20) X 10*6/uL Hgb 10.8 L (12.0-15.0) g/dL Hct 33.0 L (37.2-46.3) % Neutrophils # 8.45 H (1.80-7.70) X 10*3/uL Carbon Dioxide (21.6-31.8) mmol/L Glucose (70-110) mg/dL Hemoglobin A1c 6.2 H (4.0-6.0) % Calcium (8.7-10.3) mg/dL C-Reactive Protein (0.00-0.80) mg/dL Total Protein (6.2-8.2) g/dL Albumin (3.8-4.9) g/dL Albumin/Globulin Ratio (1.60-3.17) g/dL RBC Folate 904 H (280 - 791) ng/mL 03/24/21 Range/Units 06:30 WBC (4.50-10.00) X 10*3/uL RBC (4.10-5.20) X 10*6/uL Hgb (12.0-15.0) g/dL Hct (37.2-46.3) % Neutrophils # (1.80-7.70) X 10*3/uL Carbon Dioxide 20.2 L (21.6-31.8) mmol/L Glucose 118 H (70-110) mg/dL Hemoglobin A1c (4.0-6.0) % Calcium 8.4 L (8.7-10.3) mg/dL C-Reactive Protein 2.20 H (0.00-0.80) mg/dL Total Protein 6.1 L (6.2-8.2) g/dL Albumin 3.6 L (3.8-4.9) g/dL Albumin/Globulin Ratio 1.44 L (1.60-3.17) g/dL RBC Folate (280 - 791) ng/mL H & H 03/22/21 03/23/21 03/24/21 Range/Units 18:36 14:05 06:30 Hgb 12.7 12.4 10.8 L (11.4-16.0) gm/dL Hct 37.7 35.7 33.0 L (34.0-46.0) % Coagulation 03/22/21 Range/Units 18:36 INR 1.0 (<1.2) Result Diagrams: 03/24/21 06:30 03/24/21 06:30 - Diagnostic results Cervical MRI with contrast: report reviewed, image reviewed Cervical MRI with/without contrast: report reviewed, image reviewed Assessment and Plan Assessment: C3-C7 spondylosis with related neural foraminal narrowing C4-C5 Grade 1 spondylolisthesis Leukocytosis History of recent falls Detailed mental health history Other medical comorbidities Plan: I was able to discuss the case, including with physical exam findings and imaging studies by attending Dr. Gillette. At this time no emergent orthopedic surgical intervention recommended Dr. Gillette was in surgery during my assessment, I will again review the MRI images with him to confirm my findings, patient's daughter was notified of this. Patient has a number of variables that could be contributing to her frequent falls. Patient is demonstrating no obvious signs of myelopathy of the upper or lower extremities on physical exam. Patient is not currently demonstrating any acute signs of infection involving the spine at this time, if patient's labs worsen or her physical exam findings change, would recommend further imaging studies of the thoracic and lumbar spine to complete clinical picture, this would be an MRI with and without contrast. Other biomedical analytical scientist recommendations PT/OT evaluation GI and DVT prophylaxis per primary medical service Further recommendations to follow Time with Patient: Less than 30
--- NOTE | 2021-03-24 23:27 | PN ---
PROGRESS NOTE DATE OF SERVICE: 03/24/2021 REASON FOR FOLLOWUP: Leukocytosis. INTERVAL HISTORY: The patient is afebrile. The patient is currently breathing comfortably. Still complaining of pain to the posterior neck and the back of the head area. Denies any chest pain, shortness of breath or cough. No abdominal pain or diarrhea. PHYSICAL EXAMINATION: Blood pressure 133/64, pulse of 65, temperature of 99. She is 93% on room air. General description is an elderly female lying in bed in no distress. Respiratory system: Unlabored breathing, decreased intensity of breath sounds. No wheeze. Heart S1, S2. Regular rate and rhythm. Abdomen soft, no tenderness. LABS: Hemoglobin is 10.9, white count 11.2, creatinine 0.6. CRP is 2.20. Procalcitonin .04. DIAGNOSTIC IMPRESSION AND PLAN: Patient with leukocytosis in this patient admitted to hospital with falls and weakness in this patient whose initial workup has been negative for any infectious etiology. Procalcitonin has been normal. White count has almost normalized without antibiotic therapy. Will continue to monitor the patient closely off antibiotic therapy. Continue with supportive care. MMODL / IJN: [id number] /
[2021-03-24] MEDS: ALPRAZolam 0.5 MG TAB PO PRN (23:55)
[2021-03-25] MEDS: SODIUM CHLORIDE 0.9% 1,000 ML IV SCH ×3 (07:58→20:54)
[2021-03-25] MEDS: HEPARIN SODIUM,PORCINE/PF 5,000 UNIT/0.5 ML SYRINGE SQ SCH ×2 (08:05→20:55)
[2021-03-25] MEDS: ACETAMINOPHEN TAB 325 MG TAB PO PRN ×2 (08:05→17:46)
[2021-03-25] MEDS: PANTOPRAZOLE 40 MG TABLET PO SCH (08:05)
[2021-03-25] MEDS: ALPRAZolam 0.5 MG TAB PO PRN ×2 (08:53→20:55)
[2021-03-25] MEDS: HYDROcodone/APAP 5-325MG 1 EACH TAB PO PRN ×2 (14:15→20:55)
[2021-03-25] MEDS: LORazepam 1 MG TAB PO PRN (14:15)
--- NOTE | 2021-03-25 14:46 | PN ---
PROGRESS NOTE DATE OF SERVICE: 03/25/2021 REASON FOR FOLLOWUP: Leukocytosis. INTERVAL HISTORY: The patient is afebrile. The patient is currently breathing comfortably on room air. The patient denies having any chest pain, shortness of breath or cough. No abdominal pain or diarrhea. PHYSICAL EXAMINATION: Blood pressure 128/73 with a pulse of , temperature 98.1. She is 97% on room air. General description is an elderly female lying in bed in no distress. Respiratory system: Unlabored breathing, clear to auscultation anteriorly. Heart S1, S2. Regular rate and rhythm. Abdomen soft, no tenderness. LABS: No new labs have been obtained today. The patient's blood cultures came back negative. DIAGNOSTIC IMPRESSION AND PLAN: Patient with leukocytosis in this patient admitted to hospital with falls. MRI of cervical spine showed no suspicious enhancements or . Patient's white count did respond without any antibiotic therapy. Cultures have been negative. Hence recommend no antibiotic at this point. Continue with supportive care. MMODL / IJN: [id number] /
--- NOTE | 2021-03-25 15:41 | P.PN ---
Subjective Progress Note Date: 03/25/21 Patient is see bedside and feels about the same. Orthopedic team evaluated and no need for any urgent surgical at this time. Objective - Vital Signs Vital signs: Vital Signs Temp 98 F 03/25/21 14:00 Pulse 58 L 03/25/21 14:00 Resp 16 03/25/21 14:00 BP 172/78 03/25/21 14:00 Pulse Ox 96 03/25/21 14:00 Intake & Output 03/24/21 03/25/21 03/25/21 18:59 06:59 18:59 Intake Total 600 1276 Balance 600 1276 Intake: Intake, IV Titration 1040 Amount Sodium Chloride 0.9% 1, 1040 000 ml @ 130 mls/hr IV . [id number] [facility] Rx#:[id number] Oral 600 236 Other: Voiding Method Toilet Toilet # Voids 3 2 - Exam GENERAL: The patient is lying in bed and is mild to moderate acute distress. NEUROLOGICAL: Higher mental function: The patient is awake, alert, oriented to self, place and time. She is correctly stated name of current state. Correctly name objects (pen, watch and glasses). I had to repeat some of the questions since is tangential. Patient is following simple commands. No aphasia. Cranial nerves: The pupils are round, equal and reactive to light and accommodation. Visual lott are full to confrontation throughout. Extraocular movement is intact no nystagmus is noted. Facial sensation is normal to touch throughout. The facial strength is normal throughout. Hearing is moderately decreased bilaterally to hand rub. Tongue is midline and moved [id number] without any difficulty. No dysarthria is noted. Shoulder shrug is normal bilaterally. Motor: Gait was limited because of her cooperation but was not swaying towards right or left. The strength is 5 over 5 throughout. Normal tone and bulk. Cerebellum: Normal finger to nose heel to garcia bilaterally. Sensation: Sensation is normal to touch throughout. Reflexes (right/left): 2+ throughout except patellar are 3+ bilaterally. Plantars are mute bilaterally. WORK-UP: Red blood cell folate is not home for which is considered a high. Serum folate is more than 20. Vitamin B12 is 722. TSH is 0.773. Hemoglobin A1c 6.2. Ammonia level is less than 9. MRI of the brain with and without is reported as mild nonspecific white matter changes presumed on the basis of product chronic small vessel ischemic change in the patient of this age. No MRI evidence for recent infarct. MRI of the cervical spine is reported as suboptimal study as there is motion artifact degradation. Spondylolisthesis C5-C6 levels. Multilevel degenerative changes greatest C3-C4 through C6-C7 level as detailed above. No cysts basis and has been seen. And is mild to moderate degree in the body of the report. Per Jamin reviewed the MRI of the cervical spine and yes there is motion artifact but there felt between C4 to C6 there is at least moderate spondylosis. 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 Cylindrical prominence or mild aneurysm change to the left A2 segment up to 2.2 mm. Patent fenestrated anterior communicating artery suspected. Routine EEG 03/24/2021: Normal. - Labs CBC & Chem 7: 03/24/21 06:30 03/24/21 06:30 Labs: Microbiology - Last 24 Hours (Table) 03/24/21 06:30 Blood Culture - Preliminary Blood No Growth after 24 hours Assessment and Plan Assessment: Altered Mental status with repeated falls. Encephalopathy of unknown etiology. Has leukocytosis but no fever. 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 Cylindrical prominence or mild aneurysm change to the left A2 segment up to 2.2 mm per MRA) Cephalgia (possible result of fall) Repeated Falls of unknown etiology Cervical spondylosis and I felt was most likely moderate in severity at least at C4 C5 to C6 Newly diagnosed of borderline diabetes mellitus (HbA1c: 6.2) Medication noncompliance (according to family she takes more than her scheduled or does not take her medication Hypertension Bipolar Anxiety Depression Plan: * Consulted orthopedic team for the cervical spondylosis and no urgent surgical intervention at this time. * Neuro checks to be continued * Infection disease team in on board. * Psych team is consulted. * Will defer the rest of the medical management to primary team. * Upon discharge the patient needs to follow-up with a neurologist as an outpatient within 1-2 weeks. * She needs to follow-up with intervention neurologist as an outpatient for further workups for her intracranial aneurysm (Recommend following up at [facility] and contact number is [phone]) and to follow-up within 1-2 weeks after discharge. This was relayed to her daughter and her significant other. Plan is discussed with the patient's nurse. There is no furhter neurological work-up. She is clear from neurological perspective. Tj Dominguez MD Neuro-Hospitalist Time with Patient: Less than 30
--- NOTE | 2021-03-25 22:37 | P.PN ---
Subjective Progress Note Date: 03/24/21 Patient is a 70-year-old female with known history of anxiety, GERD was brought to the hospital by EMS due to altered mental status and frequent falls. Patient states that she clean her wood flavia and was slippery and suddenly fell on the floor hitting her head. Patient is somewhat poor historian. Patient's daughter is at bedside. Able to provide some of the history. Apparently she has been having multiple falls. Patient has not been taking her medications as prescribed. Denies any complaints of dizziness or lightheadedness. No headache. Patient is complaining of pain. No fever no chills. Denies any recent illnesses. No cough or sputum production. No chest pain or shortness of breath. Denies any bladder or bowel incontinence. CT brain showed mild hydrocephalus. No obstructing lesion seen. Chest x-ray showed normal chest. EKG showed normal sinus rhythm Laboratory showed WBC 15.0 hemoglobin 12.7 platelets 244 Chloride 103, bicarb 21 BUN 19 and creatinine 0.72 and blood sugar is 105 Troponin x1 - Ammonia less than 9 UA negative for infection UDS is positive for opiates and benzodiazepines. Coronavirus PCR not detected. 03/24/2021 Patient is still anxious and incoherent. The patient with confusion. Otherwise denies any complaints of chest pain or shortness breath. Still complains of pain over the back of the head. Patient had MRI/MRA of the brain showed suboptimal study as there is motion artifact degradation. Spondylolisthesis C5-C6 levels. Multilevel degenerative changes greatest C3-C4 through C6-C7 level are detailed above. No suspicious enhancement seen. EEG is normal routine EEG. No focal slowing, epileptiform discharges are seizures on the EEG noted. Psychiatry was consulted and neurology is on board. Orthopedic surgery was also consulted due to spondylosis. Discussed with with her daughter and also her in detail at bedside. Laboratory data showed WBC 11.2 hemoglobin 10.8 and platelets 135 Sodium 139 potassium 3.8 chloride now 107 bicarb is 20.2, BUN 12 and creatinine 0.6 and calcium 8.4 CRP 2.2 and procalcitonin level is 0.04. A1c 6.2, B12 722 and RBC folate greater than 20. Neurology is on board. Current medications reviewed. Objective - Vital Signs Vital signs: Vital Signs Temp 99.0 F 03/24/21 19:55 Pulse 44 L 03/24/21 19:55 Resp 16 03/24/21 19:55 BP 133/64 03/24/21 19:55 Pulse Ox 93 L 03/24/21 19:55 Intake & Output 03/24/21 03/24/21 03/25/21 06:59 18:59 06:59 Intake Total 600 600 Balance 600 600 Intake: Oral 600 600 Other: Voiding Method Toilet Toilet # Voids 2 3 - Exam PHYSICAL EXAMINATION: Patient is lying in the bed comfortably, no acute distress, awake alert Part of oriented x2-3. Confused and tangential thoughts.. HEENT: Normocephalic. Neck is supple. Pupils reactive. Nostrils clear. Oral cavity is moist. Neck reveals no JVD, carotid bruits, or thyromegaly. CHEST EXAMINATION: Trachea is central. Symmetrical expansion. Lung lott clear to auscultation and percussion. CARDIAC: Normal S1, S2 with no gallops. No murmurs ABDOMEN: Soft. Bowel sounds normal. No organomegaly. No abdominal bruits. Extremities: reveal no edema. No clubbing or cyanosis Neurologically awake, alert, oriented x3 with well-coordinated movements. No focal deficits noted Skin: No rash or skin lesions. Psychiatric: Cooperative. anxious Musculoskeletal: No joint swelling or deformity. Normal range of motion. - Labs CBC & Chem 7: 03/24/21 06:30 03/24/21 06:30 Labs: Abnormal Lab Results - Last 24 Hours (Table) 03/23/21 03/23/21 03/24/21 Range/Units 11:18 11:18 06:30 WBC 11.22 H (4.50-10.00) X 10*3/uL RBC 3.64 L (4.10-5.20) X 10*6/uL Hgb 10.8 L (12.0-15.0) g/dL Hct 33.0 L (37.2-46.3) % Neutrophils # 8.45 H (1.80-7.70) X 10*3/uL Carbon Dioxide (21.6-31.8) mmol/L Glucose (70-110) mg/dL Hemoglobin A1c 6.2 H (4.0-6.0) % Calcium (8.7-10.3) mg/dL C-Reactive Protein (0.00-0.80) mg/dL Total Protein (6.2-8.2) g/dL Albumin (3.8-4.9) g/dL Albumin/Globulin Ratio (1.60-3.17) g/dL RBC Folate 904 H (280 - 791) ng/mL 03/24/21 Range/Units 06:30 WBC (4.50-10.00) X 10*3/uL RBC (4.10-5.20) X 10*6/uL Hgb (12.0-15.0) g/dL Hct (37.2-46.3) % Neutrophils # (1.80-7.70) X 10*3/uL Carbon Dioxide 20.2 L (21.6-31.8) mmol/L Glucose 118 H (70-110) mg/dL Hemoglobin A1c (4.0-6.0) % Calcium 8.4 L (8.7-10.3) mg/dL C-Reactive Protein 2.20 H (0.00-0.80) mg/dL Total Protein 6.1 L (6.2-8.2) g/dL Albumin 3.6 L (3.8-4.9) g/dL Albumin/Globulin Ratio 1.44 L (1.60-3.17) g/dL RBC Folate (280 - 791) ng/mL Assessment and Plan Assessment: Altered mental status with frequent falls. Ruled out intracranial etiology. Intracranial aneurysm. 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 Cervical spondylosis with moderate stenosis C5-C6 C4 levels. Diabetes type 2 newly diagnosed A1c 6.2 Possible withdrawal from Xanax use. Medication noncompliance as per family. Anxiety/bipolar disorder Depression Hypertension controlled DVT prophylaxis Heparin subcu Plan: Patient will be continued neurochecks and stroke work-up including MRI and MRA of the brain was done. EEG was mormal. Neurology is on board. TSH B12 folate and ammonia levels within normal limits. Leukocytosis is improving. Likely reactive. Chest x-ray and UA negative. Patient has been afebrile. Start back on Xanax and follow-up closely.Neurology is following. Psychiatry and orthopedic surgery was consulted.
--- NOTE | 2021-03-25 22:41 | P.PN ---
Subjective Progress Note Date: 03/25/21 Principal diagnosis: Altered mental status with frequent falls and Tangential thoughts. Patient is a 70-year-old female with known history of anxiety, GERD was brought to the hospital by EMS due to altered mental status and frequent falls. Patient states that she clean her wood flavia and was slippery and suddenly fell on the floor hitting her head. Patient is somewhat poor historian. Patient's daughter is at bedside. Able to provide some of the history. Apparently she has been having multiple falls. Patient has not been taking her medications as prescribed. Denies any complaints of dizziness or lightheadedness. No headache. Patient is complaining of pain. No fever no chills. Denies any recent illnesses. No cough or sputum production. No chest pain or shortness of breath. Denies any bladder or bowel incontinence. CT brain showed mild hydrocephalus. No obstructing lesion seen. Chest x-ray showed normal chest. EKG showed normal sinus rhythm Laboratory showed WBC 15.0 hemoglobin 12.7 platelets 244 Chloride 103, bicarb 21 BUN 19 and creatinine 0.72 and blood sugar is 105 Troponin x1 - Ammonia less than 9 UA negative for infection UDS is positive for opiates and benzodiazepines. Coronavirus PCR not detected. 03/24/2021 Patient is still anxious and incoherent. The patient with confusion. Otherwise denies any complaints of chest pain or shortness breath. Still complains of pain over the back of the head. Patient had MRI/MRA of the brain showed suboptimal study as there is motion artifact degradation. Spondylolisthesis C5-C6 levels. Multilevel degenerative changes greatest C3-C4 through C6-C7 level are detailed above. No suspicious enhancement seen. EEG is normal routine EEG. No focal slowing, epileptiform discharges are seizures on the EEG noted. Psychiatry was consulted and neurology is on board. Orthopedic surgery was also consulted due to spondylosis. Discussed with with her daughter and also her in detail at bedside. Laboratory data showed WBC 11.2 hemoglobin 10.8 and platelets 135 Sodium 139 potassium 3.8 chloride now 107 bicarb is 20.2, BUN 12 and creatinine 0.6 and calcium 8.4 CRP 2.2 and procalcitonin level is 0.04. A1c 6.2, B12 722 and RBC folate greater than 20. Neurology is on board. 03/25/2021 Patient still anxious and having flight of ideas. No complaints of chest pain or shortness of breath. No fever no chills. Leukocytosis improved. Still complains of pain over the back of the head. Continue on Tylenol as needed for pain. Patient was seen by psychiatry and recommends inpatient psychiatric admission. Patient not a surgical candidate for C5-C6 spondylosis as per orthopedic surgery. Neurology is on board. Stroke work-up was negative. laboratory data reviewed. Current medications reviewed. Objective - Vital Signs Vital signs: Vital Signs Temp 98 F 03/25/21 14:00 Pulse 58 L 03/25/21 14:00 Resp 16 03/25/21 14:00 BP 172/78 03/25/21 14:00 Pulse Ox 96 03/25/21 14:00 Intake & Output 03/25/21 03/25/21 03/26/21 06:59 18:59 06:59 Intake Total 1276 Balance 1276 Intake: Intake, IV Titration 1040 Amount Sodium Chloride 0.9% 1, 1040 000 ml @ 130 mls/hr IV . [id number] [facility] Rx#:[id number] Oral 236 Other: Voiding Method Toilet # Voids 2 - Exam PHYSICAL EXAMINATION: Patient is lying in the bed comfortably, no acute distress, awake alert Part of oriented x2-3. Confused and tangential thoughts.. HEENT: Normocephalic. Neck is supple. Pupils reactive. Nostrils clear. Oral cavity is moist. Neck reveals no JVD, carotid bruits, or thyromegaly. CHEST EXAMINATION: Trachea is central. Symmetrical expansion. Lung lott clear to auscultation and percussion. CARDIAC: Normal S1, S2 with no gallops. No murmurs ABDOMEN: Soft. Bowel sounds normal. No organomegaly. No abdominal bruits. Extremities: reveal no edema. No clubbing or cyanosis Neurologically awake, alert, oriented x3 with well-coordinated movements. No focal deficits noted Skin: No rash or skin lesions. Psychiatric: Cooperative. anxious Musculoskeletal: No joint swelling or deformity. Normal range of motion. - Labs CBC & Chem 7: 03/24/21 06:30 11 06:30 Labs: Microbiology - Last 24 Hours (Table) 03/24/21 06:30 Blood Culture - Preliminary Blood No Growth after 24 hours Assessment and Plan Assessment: Altered mental status with frequent falls and Tangential thoughts. Ruled out intracranial etiology.Likely due to underlying bipolar disorder. Intracranial aneurysm. 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 Cervical spondylosis with moderate stenosis C5-C6 C4 levels. Diabetes type 2 newly diagnosed A1c 6.2 Possible withdrawal from Xanax use. Medication noncompliance as per family. Anxiety/bipolar disorder Depression Hypertension controlled DVT prophylaxis Heparin subcu Plan: Patient was was seen by psychiatry and does meet psychiatric inpatient criteria for admission.. Medications will be started after transferring to the unit. Placed on one-to-one constant observer and suicide precautions. Patient will be continued neurochecks and stroke work-up including MRI and MRA of the brain was done. EEG was mormal. Neurology is on board. TSH B12 folate and ammonia levels within normal limits. Leukocytosis is improving. Likely reactive. Chest x-ray and UA negative. Patient has been afebrile. Start back on Xanax and follow-up closely.Neurology is following. Psychiatry and orthopedic surgery was consulted.
[2021-03-26] MEDS: MORPHINE SULFATE 4 MG/ML SYRINGE IV PRN (00:20)
[2021-03-26] MEDS: SODIUM CHLORIDE 0.9% 1,000 ML IV SCH ×2 (05:06→07:54)
[2021-03-26] MEDS: HYDROcodone/APAP 5-325MG 1 EACH TAB PO PRN ×2 (07:53→14:09)
[2021-03-26] MEDS: HEPARIN SODIUM,PORCINE/PF 5,000 UNIT/0.5 ML SYRINGE SQ SCH ×2 (07:53→21:06)
[2021-03-26] MEDS: PANTOPRAZOLE 40 MG TABLET PO SCH (07:53)
[2021-03-26] MEDS: ALPRAZolam 0.5 MG TAB PO PRN (07:53)
[2021-03-26 11:52] LABS: Basophils # (A) 0.06 X 10*3/uL (0.00-0.10); Basophils % (A) 0.7 %; Eosinophils # (A) 0.38 X 10*3/uL (0.04-0.35); Eosinophils % (A) 4.1 %; HCT 34.4 % (37.2-46.3); HGB 11.2 g/dL (12.0-15.0); Lymphocytes # (A) 2.22 X 10*3/uL (0.90-5.00); Lymphocytes % (A) 24.1 %; MCH 29.8 pg (27.0-32.0); MCHC 32.6 g/dL (32.0-37.0); MCV 91.5 fL (80.0-97.0); Mean Platelet Volume 12.3 fL (9.5-12.2); Monocytes # (A) 0.85 X 10*3/uL (0.20-1.00); Monocytes % (A) 9.2 %; Neutrophils # (A) 5.68 X 10*3/uL (1.80-7.70); Neutrophils % (A) 61.6 %; Platelet Count 139 X 10*3/uL (140-440); RBC 3.76 X 10*6/uL (4.10-5.20); RDW 13.1 % (11.5-14.5); WBC 9.22 X 10*3/uL (4.50-10.00)
[2021-03-26 13:17] LABS: African American GFR (CKD) 107.3 (60.0-200.0); Anion Gap 12.3 mmol/L (4.00-12.00); BUN/Creat Ratio 12.48 Ratio (12.00-20.00); Blood Urea Nitrogen 7.6 mg/dL (9.0-27.0); Calcium 8.9 mg/dL (8.7-10.3); Carbon Dioxide 21.3 mmol/L (21.6-31.8); Non-African American GFR(CKD) 92.6 (60.0-200.0); Potassium 3.6 mmol/L (3.5-5.5)
[2021-03-26] MEDS: LORazepam 1 MG TAB PO PRN (14:09)
[2021-03-26] MEDS: ACETAMINOPHEN TAB 325 MG TAB PO PRN (15:17)
--- NOTE | 2021-03-26 23:05 | P.PN ---
Subjective Progress Note Date: 03/26/21 Principal diagnosis: Altered mental status with frequent falls and Tangential thoughts. Patient is a 70-year-old female with known history of anxiety, GERD was brought to the hospital by EMS due to altered mental status and frequent falls. Patient states that she clean her wood flavia and was slippery and suddenly fell on the floor hitting her head. Patient is somewhat poor historian. Patient's daughter is at bedside. Able to provide some of the history. Apparently she has been having multiple falls. Patient has not been taking her medications as prescribed. Denies any complaints of dizziness or lightheadedness. No headache. Patient is complaining of pain. No fever no chills. Denies any recent illnesses. No cough or sputum production. No chest pain or shortness of breath. Denies any bladder or bowel incontinence. CT brain showed mild hydrocephalus. No obstructing lesion seen. Chest x-ray showed normal chest. EKG showed normal sinus rhythm Laboratory showed WBC 15.0 hemoglobin 12.7 platelets 244 Chloride 103, bicarb 21 BUN 19 and creatinine 0.72 and blood sugar is 105 Troponin x1 - Ammonia less than 9 UA negative for infection UDS is positive for opiates and benzodiazepines. Coronavirus PCR not detected. 03/24/2021 Patient is still anxious and incoherent. The patient with confusion. Otherwise denies any complaints of chest pain or shortness breath. Still complains of pain over the back of the head. Patient had MRI/MRA of the brain showed suboptimal study as there is motion artifact degradation. Spondylolisthesis C5-C6 levels. Multilevel degenerative changes greatest C3-C4 through C6-C7 level are detailed above. No suspicious enhancement seen. EEG is normal routine EEG. No focal slowing, epileptiform discharges are seizures on the EEG noted. Psychiatry was consulted and neurology is on board. Orthopedic surgery was also consulted due to spondylosis. Discussed with with her daughter and also her in detail at bedside. Laboratory data showed WBC 11.2 hemoglobin 10.8 and platelets 135 Sodium 139 potassium 3.8 chloride now 107 bicarb is 20.2, BUN 12 and creatinine 0.6 and calcium 8.4 CRP 2.2 and procalcitonin level is 0.04. A1c 6.2, B12 722 and RBC folate greater than 20. Neurology is on board. 03/25/2021 Patient still anxious and having flight of ideas. No complaints of chest pain or shortness of breath. No fever no chills. Leukocytosis improved. Still complains of pain over the back of the head. Continue on Tylenol as needed for pain. Patient was seen by psychiatry and recommends inpatient psychiatric admission. Patient not a surgical candidate for C5-C6 spondylosis as per orthopedic surgery. Neurology is on board. Stroke work-up was negative. laboratory data reviewed. 03/26/2021 Patient is currently awake alert but mental status is still the same. No complaints of chest pain or shortness breath. No fever no chills. Tolerating oral diet and is ambulating in the hallway. Patient is awaiting to be transferred to inpatient psychiatric unit. Cleared from medical standpoint. Lab data showed white count came down to 9.22 hemoglobin 11.1 platelets 139 BUN 7.6 and creatinine 0.6 Neurology has seen the patient. No further recommendations at this time. Current medications reviewed. Objective - Vital Signs Vital signs: Vital Signs Temp 98.4 F 03/26/21 20:28 Pulse 55 L 03/26/21 20:28 Resp 14 03/26/21 20:28 BP 127/68 03/26/21 20:28 Pulse Ox 96 03/26/21 20:28 Intake & Output 03/26/21 03/26/21 03/27/21 06:59 18:59 06:59 Intake Total 220 354 Balance 220 354 Intake: Oral 220 354 Other: Voiding Method Toilet # Voids 2 - Exam PHYSICAL EXAMINATION: Patient is lying in the bed comfortably, no acute distress, awake alert Part of oriented x2-3. Confused and tangential thoughts.. HEENT: Normocephalic. Neck is supple. Pupils reactive. Nostrils clear. Oral cavity is moist. Neck reveals no JVD, carotid bruits, or thyromegaly. CHEST EXAMINATION: Trachea is central. Symmetrical expansion. Lung lott clear to auscultation and percussion. CARDIAC: Normal S1, S2 with no gallops. No murmurs ABDOMEN: Soft. Bowel sounds normal. No organomegaly. No abdominal bruits. Extremities: reveal no edema. No clubbing or cyanosis Neurologically awake, alert, oriented x3 with well-coordinated movements. No focal deficits noted Skin: No rash or skin lesions. Psychiatric: Cooperative. anxious Musculoskeletal: No joint swelling or deformity. Normal range of motion. - Labs CBC & Chem 7: 11/11/21 07:00 03/26/21 07:00 Labs: Abnormal Lab Results - Last 24 Hours (Table) 03/26/21 03/26/21 Range/Units 07:00 07:00 RBC 3.76 L (4.10-5.20) X 10*6/uL Hgb 11.2 L (12.0-15.0) g/dL Hct 34.4 L (37.2-46.3) % Plt Count 139 L (140-440) X 10*3/uL MPV 12.3 H (9.5-12.2) fL Eosinophils # 0.38 H (0.04-0.35) X 10*3/uL Carbon Dioxide 21.3 L (21.6-31.8) mmol/L Anion Gap 12.30 H (4.00-12.00) mmol/L BUN 7.6 L (9.0-27.0) mg/dL Microbiology - Last 24 Hours (Table) 03/24/21 06:30 Blood Culture - Preliminary Blood No Growth after 48 hours Assessment and Plan Assessment: Altered mental status with frequent falls and Tangential thoughts. Ruled out intracranial etiology.Likely due to underlying bipolar disorder. Intracranial aneurysm. 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 Cervical spondylosis with moderate stenosis C5-C6 C4 levels. Diabetes type 2 newly diagnosed A1c 6.2 Possible withdrawal from Xanax use. Medication noncompliance as per family. Anxiety/bipolar disorder Depression Hypertension controlled DVT prophylaxis Heparin subcu Plan: Patient was was seen by psychiatry and does meet psychiatric inpatient criteria for admission.. Medications will be started after transferring to the unit. Placed on one-to-one constant observer and suicide precautions. Patient will be continued neurochecks and stroke work-up including MRI and MRA of the brain was done. EEG was mormal. Neurology is on board. TSH B12 folate and ammonia levels within normal limits. Leukocytosis is improving. Likely reactive. Chest x-ray and UA negative. Patient has been afebrile. Start back on Xanax and follow-up closely.Neurology is following. Psychiatry and orthopedic surgery has seen the pt..
[2021-03-27] MEDS: ALPRAZolam 0.5 MG TAB PO PRN ×2 (00:43→08:16)
[2021-03-27] MEDS: PANTOPRAZOLE 40 MG TABLET PO SCH (08:17)
[2021-03-27] MEDS: HEPARIN SODIUM,PORCINE/PF 5,000 UNIT/0.5 ML SYRINGE SQ SCH (08:17)
[2021-03-27] MEDS: HYDROcodone/APAP 5-325MG 1 EACH TAB PO PRN (11:21)
[2021-03-27] MEDS ORDERED: traZODone HCL 50 MG TAB PO PRN (12:34)
[2021-03-27] MEDS ORDERED: ALPRAZolam 0.5 MG TAB PO PRN (12:34)
--- NOTE | 2021-03-27 12:43 | P.PN ---
Progress Note - Text Progress Note Date: 03/27/21 Interval History: Patient was seen today for psychiatric follow up for her bipolar disorder at the request of the primary team. Patients nurse states that patient has had no behavioral problems and not endorsing any HI or SI. Patients daughter spoke with mortgage underwriter outside the room today and states that her mother has been calling the doctors office and stating that her doctor will come and deliver her medications. Daughter did claim that patient cannot care for herself however did not explain why. Karynther apparently states that she did fill out a petition however does not want to submit it. Daughter claims that patient did not endorse any suicidal or homicidal ideations or any auditory or visual hallucinations. Daughter did however one patient involuntary is readmitted to the mental health unit. Button Reclaimer spoke with daughter about the process of involuntary admission and the petition and the certificate that need to be completed for that process to occur and if patient needs a threshold of her symptoms and potential safety. Patient was seen at the bedside and rambled at times during the interview however was fairly linear and logical. She claims that she does not want any more medications and was refusing mental health treatment. She claims that she wants a follow-up with her primary care provider. She denies any problems with her mood however did complain of a headache after the fall. She claims that she is having problems with her which have been ongoing. She denied any problems with her sleep. She is not endorsing any depression or anxiety today. At this time patient denies any suicidal or homical ideations, intent or plan. Patient denies any auditory, visual hallucinations and denies any paranoia or delusions. Patient denies any side effects from the medications and has been compliant with meds. Mental Status Exam: General Appearance: Patient appears to be stated age is alert, more cooperative today and willing to speak to mortgage underwriter. Patient appears to have improved hygiene and grooming wearing hospital gown with improved eye contact. Poor dentition Behavior: more cooperative today, no agitation Speech: Patient's speech is fluent and nonpressured. Mood/Affect: Patient reports their mood is "ok", affect is congruent and constricted Suicidality/Homicidality: Patient denies having any suicidal or homicidal ideation intent or plan. Perceptions: Patient denies any visual hallucinations and denies any auditory hallucinations Though content/process: Improved, rambles at times. Logical. Not endorsing any delusions or paranoia. Memory and concentration: AOX3, improved attention span. Can spell "WORLD" backwards Judgment and insight: chronically poor however has improved IMPRESSIONS: Bipolar disorder unspecified Possible benzodiazepine abuse PLAN: -At this time patient DOES meet criteria for inpatient psychiatric admission. -Patient DOES NOT have decision making capacity at this time and is unable to reason through and communicate/appreciate the risks, benefits and alternatives to treatment. -Delirium precautions recommended with patient including - avoiding use of narcotics and MED CARE MANAGER sedatives, limit anticholinergic medications when possible, frequent re-orientation, minimize use of restraints, open window shades during the day and close them at night -Would recommend the following medication changes/additions: resume trazodone 50 mg qhs prn for isnomnia. decrease xanax 0.5 mg bid prn for anxiety. prn Haldol and ativan for now for agitation/aggression. d/c celexa. -Communicated plan to patient's nurse and hospitalist -please give MH resources for oupatient follow up. -Psychiatry will sign off at this time -Please contact with any questions.
[2021-03-27 14:01] VITALS: BMI 25.7
[2021-03-27 14:43] VITALS: BP 117/62; PULSE 89; RESP 18; TEMP 98.3
== END 2021-03-27 16:12 | disposition home health service (06) | DRG 72 ==
LOC: EC 17:44 → 4SSUR 22:41 → OBSVTOIN 03-24 13:03
PROVIDERS: ADMIT Hospitalist; ATTEND Hospitalist
DX: G93.40 Encephalopathy, unspecified (principal); E11.9 Type 2 diabetes mellitus without complications; F31.9 Bipolar disorder, unspecified; F41.9 Anxiety disorder, unspecified; G89.29 Other chronic pain; Z20.822 Contact with and (suspected) exposure to COVID-19; D72.829 Elevated white blood cell count, unspecified; I10 Essential (primary) hypertension; I67.1 Cerebral aneurysm, nonruptured; M43.12 Spondylolisthesis, cervical region; M47.812 Spondylosis without myelopathy or radiculopathy, cervical region; K21.9 Gastro-esophageal reflux disease without esophagitis; Z81.8 Family history of other mental and behavioral disorders; Z82.49 Family history of ischemic heart disease and other diseases of the circulatory system; Z90.710 Acquired absence of both cervix and uterus; Z91.14 Patient's other noncompliance with medication regimen; Z79.899 Other long term (current) drug therapy; M48.02 Spinal stenosis, cervical region
CPT/HCPCS: 36415; 70450; 70544; 70553; 71046; 72156; 80048; 80053; 80306; 81003; 82140; 82607; 82746; 82747; 83036; 84145; 84443; 84484; 85025; 85610; 85730; 86140; 87040; 87635; 93005; 95816; 96361; 96374; 96376; 99285

== ENCOUNTER 2021-04-29 23:14 | Inpatient (IN) | payer MEDICARE, MEDICAID ==
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
[2021-04-30 00:43] LABS: Basophils # (A) 0.1 k/uL (0-0.2); Basophils % (A) 1 %; Eosinophils # (A) 0.2 k/uL (0-0.7); Eosinophils % (A) 1 %; HCT 40.9 % (34.0-46.0); HGB 13.5 gm/dL (11.4-16.0); Lymphocytes # (A) 2.2 k/uL (1.0-4.8); Lymphocytes % (A) 17 %; MCH 31.5 pg (25.0-35.0); MCHC 32.9 g/dL (31.0-37.0); MCV 95.6 fL (80.0-100.0); Mean Platelet Volume 8.7; Monocytes # (A) 0.4 k/uL (0-1.0); Monocytes % (A) 3 %; Neutrophils # (A) 10.1 k/uL (1.3-7.7); Neutrophils % (A) 77 %; Platelet Count 375 k/uL (150-450); RBC 4.28 m/uL (3.80-5.40); RDW 13.4 % (11.5-15.5)
[2021-04-30 00:57] LABS: African American GFR (CKD) >90 (>60 ml/min/1.73 sqM); Anion Gap 16 mmol/L; Blood Urea Nitrogen 12 mg/dL (7-17); Calcium 10.2 mg/dL (8.4-10.2); Carbon Dioxide 21 mmol/L (22-30); Chloride 107 mmol/L (98-107); Glucose 125 mg/dL (74-99); Non-African American GFR(CKD) >90 (>60 ml/min/1.73 sqM); Potassium 4.4 mmol/L (3.5-5.1); Sodium 144 mmol/L (137-145)
[2021-04-30 01:12] LABS: Amphetamine Screen,Urine Not Detected (NotDetected); Benzodiazepines Screen,Urine Detected (NotDetected); Cocaine Screen,Urine Not Detected (NotDetected); Opiate Screen,Urine Not Detected (NotDetected); Phencyclidine Screen,Urine Not Detected (NotDetected); Urn Cannabinoid Scrn Not Detected (NotDetected)
[2021-04-30 01:13] LABS: Barbiturate Screen,Urine Not Detected (NotDetected); Methadone Screen, Urine Not Detected (NotDetected); Oxycodone Screen, Urine Not Detected (NotDetected); Tricyclic Antidepressant,Urine Not Detected (NotDetected)
[2021-04-30 01:21] LABS: Appearance,Urine Clear (Clear); Bilirubin,Urine Negative (Negative); Blood,Urine Negative (Negative); Color,Urine Light Yellow; Glucose,Urine (UA) Negative (Negative); Ketones,Urine Negative (Negative); Leukocyte Esterase,Urine Large (Negative); Nitrite,Urine Negative (Negative); Protein,Urine Negative (Negative); RBC,Urine 13 /hpf (0-5); Specific Gravity,Urine 1.006 (1.001-1.035); Squamous Epithelial Cell,Urine 5 /hpf (0-4); Urobilinogen,Urine <2.0 mg/dL (<2.0); WBC,Urine 12 /hpf (0-5)
[2021-04-30] MEDS ORDERED: ACETAMINOPHEN TAB 325 MG TAB PO STA (02:40)
[2021-04-30] MEDS ORDERED: ALPRAZolam 0.5 MG TAB PO PRN (02:41)
[2021-04-30] MEDS: PANTOPRAZOLE 40 MG TABLET PO SCH (08:19)
[2021-04-30] MEDS ORDERED: MAGNESIUM HYDROXIDE 2,400 MG/10 ML CUP PO PRN (15:06)
[2021-04-30] MEDS ORDERED: MAG HYDROX/AL HYDROX/SIMETH 30 ML CUP PO PRN (15:06)
[2021-04-30] MEDS ORDERED: HALOPERIDOL LACTATE 5 MG/ML 1 ML VIAL IM PRN (15:11)
[2021-04-30] MEDS ORDERED: LORazepam 1 MG TAB PO PRN (15:13)
[2021-04-30] MEDS ORDERED: LORazepam 2 MG/ML INJ IM PRN (15:13)
[2021-04-30] MEDS: NICOTINE 14MG/24HR PATCH TRANSDERM SCH (17:20)
[2021-04-30] MEDS: ACETAMINOPHEN TAB 325 MG TAB PO PRN (18:16)
[2021-04-30] MEDS: DIVALPROEX ER 500 MG TAB.ER.24H PO SCH (20:56)
[2021-04-30] MEDS ORDERED: traZODone HCL 50 MG TAB PO SCH (21:00)
[2021-04-30] MEDS ORDERED: QUEtiapine 25 MG TAB PO SCH (21:00)
--- NOTE | 2021-05-01 00:44 | P.PN ---
Progress Note - Text Progress Note Date: 05/01/21 Patient sedated and not appropriate for evaluation at this time. Will attempt again tomorrow.
[2021-05-01 07:35] LABS: Basophils # (A) 0.1 k/uL (0-0.2); Basophils % (A) 1 %; Eosinophils # (A) 0.3 k/uL (0-0.7); Eosinophils % (A) 4 %; HCT 40.1 % (34.0-46.0); HGB 12.7 gm/dL (11.4-16.0); Lymphocytes # (A) 2.8 k/uL (1.0-4.8); Lymphocytes % (A) 33 %; MCH 30.9 pg (25.0-35.0); MCHC 31.8 g/dL (31.0-37.0); MCV 97.2 fL (80.0-100.0); Mean Platelet Volume 8.1; Monocytes # (A) 0.6 k/uL (0-1.0); Monocytes % (A) 7 %; Neutrophils # (A) 4.5 k/uL (1.3-7.7); Neutrophils % (A) 53 %; Platelet Count 294 k/uL (150-450); RBC 4.12 m/uL (3.80-5.40); RDW 12.8 % (11.5-15.5); WBC 8.5 k/uL (3.8-10.6)
[2021-05-01 07:57] LABS: Albumin 3.9 g/dL (3.5-5.0); Bilirubin, Delta 0.1 mg/dL (0.0-0.2); Bilirubin,Unconjugated 0.4 mg/dL (0.0-1.1); Calcium 9.7 mg/dL (8.4-10.2); Potassium 4.3 mmol/L (3.5-5.1); Total Bilirubin 0.5 mg/dL (0.2-1.3); Total Protein 7.1 g/dL (6.3-8.2)
[2021-05-01] MEDS: PANTOPRAZOLE 40 MG TABLET PO SCH (09:20)
[2021-05-01] MEDS: NICOTINE 14MG/24HR PATCH TRANSDERM SCH (09:31)
--- NOTE | 2021-05-01 13:31 | P.HP ---
Psychiatric H&P - . H&P Date: 05/01/21 History & Physical: Allergies Allergy/AdvReac Type Severity Reaction Status Date / Time Penicillins Allergy Unknown Verified 04/30/21 08:53 Vital Signs Temp 98.1 F 04/30/21 14:35 Pulse 99 04/30/21 14:35 Resp 18 04/30/21 14:35 BP 140/78 04/30/21 14:35 Pulse Ox 95 04/30/21 14:35 Intake & Output 04/30/21 05/01/21 05/01/21 18:59 06:59 18:59 Weight 79.7 kg Laboratory Last Values WBC 8.5 k/uL (3.8-10.6) 05/01/21 06:54 RBC 4.12 m/uL (3.80-5.40) 05/01/21 06:54 Hgb 12.7 gm/dL (11.4-16.0) 05/01/21 06:54 Hct 40.1 % (34.0-46.0) 05/01/21 06:54 MCV 97.2 fL (80.0-100.0) 05/01/21 06:54 MCH 30.9 pg (25.0-35.0) 05/01/21 06:54 MCHC 31.8 g/dL (31.0-37.0) 05/01/21 06:54 RDW 12.8 % (11.5-15.5) 05/01/21 06:54 Plt Count 294 k/uL (150-450) 05/01/21 06:54 MPV 8.1 05/01/21 06:54 Neutrophils % 53 % 05/01/21 06:54 Lymphocytes % 33 % 05/01/21 06:54 Monocytes % 7 % 05/01/21 06:54 Eosinophils % 4 % 05/01/21 06:54 Basophils % 1 % 05/01/21 06:54 Neutrophils # 4.5 k/uL (1.3-7.7) 05/01/21 06:54 Lymphocytes # 2.8 k/uL (1.0-4.8) 05/01/21 06:54 Monocytes # 0.6 k/uL (0-1.0) 05/01/21 06:54 Eosinophils # 0.3 k/uL (0-0.7) 05/01/21 06:54 Basophils # 0.1 k/uL (0-0.2) 05/01/21 06:54 Sodium 144 mmol/L (137-145) 05/01/21 06:54 Potassium 4.3 mmol/L (3.5-5.1) 05/01/21 06:54 Chloride 107 mmol/L (98-107) 05/01/21 06:54 Carbon Dioxide 28 mmol/L (22-30) 05/01/21 06:54 Anion Gap 9 mmol/L 05/01/21 06:54 BUN 18 mg/dL (7-17) H 05/01/21 06:54 Creatinine 0.79 mg/dL (0.52-1.04) 05/01/21 06:54 Est GFR (CKD-EPI)AfAm 89 (>60 ml/min/1.73 sqM) 05/01/21 06:54 Est GFR (CKD-EPI)NonAf 77 (>60 ml/min/1.73 sqM) 05/01/21 06:54 Glucose 102 mg/dL (74-99) H 05/01/21 06:54 Calcium 9.7 mg/dL (8.4-10.2) 05/01/21 06:54 Total Bilirubin 0.5 mg/dL (0.2-1.3) 05/01/21 06:54 Conjugated Bilirubin 0.0 mg/dL (0.0-0.3) 05/01/21 06:54 Unconjugated Bilirubin 0.4 mg/dL (0.0-1.1) 05/01/21 06:54 Delta Bilirubin 0.1 mg/dL (0.0-0.2) 05/01/21 06:54 AST 24 U/L (14-36) 05/01/21 06:54 ALT 14 U/L (4-34) 05/01/21 06:54 Alkaline Phosphatase 60 U/L (38-126) 05/01/21 06:54 Total Protein 7.1 g/dL (6.3-8.2) 05/01/21 06:54 Albumin 3.9 g/dL (3.5-5.0) 05/01/21 06:54 TSH 2.080 mIU/L (0.465-4.680) 05/01/21 06:54 Urine Color Light Yellow 04/30/21 01:04 Urine Appearance Clear (Clear) 04/30/21 01:04 Urine pH 6.0 (5.0-8.0) 04/30/21 01:04 Ur Specific [place] 1.006 (1.001-1.035) 04/30/21 01:04 Urine Protein Negative (Negative) 04/30/21 01:04 Urine Glucose (UA) Negative (Negative) 04/30/21 01:04 Urine Ketones Negative (Negative) 04/30/21 01:04 Urine Blood Negative (Negative) 04/30/21 01:04 Urine Nitrite Negative (Negative) 04/30/21 01:04 Urine Bilirubin Negative (Negative) 04/30/21 01:04 Urine Urobilinogen <2.0 mg/dL (<2.0) 04/30/21 01:04 Ur Leukocyte Esterase Large (Negative) H 04/30/21 01:04 Urine RBC 13 /hpf (0-5) H 04/30/21 01:04 Urine WBC 12 /hpf (0-5) H 04/30/21 01:04 Ur Squamous Epith Cells 5 /hpf (0-4) H 04/30/21 01:04 Urine HCG, Qual Not Detected (Not Detectd) 04/30/21 00:24 Urine Opiates Screen Not Detected (NotDetected) 04/30/21 00:24 Ur Oxycodone Screen Not Detected (NotDetected) 04/30/21 00:24 Urine Methadone Screen Not Detected (NotDetected) 04/30/21 00:24 Ur Propoxyphene Screen Not Detected (NotDetected) 04/30/21 00:24 Ur Barbiturates Screen Not Detected (NotDetected) 04/30/21 00:24 Valproic Acid 40.8 ug/mL 04/30/21 15:06 U Tricyclic Antidepress Not Detected (NotDetected) 04/30/21 00:24 Ur Phencyclidine Scrn Not Detected (NotDetected) 04/30/21 00:24 Ur Amphetamines Screen Not Detected (NotDetected) 04/30/21 00:24 U Methamphetamines Scrn Not Detected (NotDetected) 04/30/21 00:24 U Benzodiazepines Scrn Detected (NotDetected) H 04/30/21 00:24 Urine Cocaine Screen Not Detected (NotDetected) 04/30/21 00:24 U Marijuana (THC) Screen Not Detected (NotDetected) 04/30/21 00:24 Coronavirus (PCR) Not Detected (Not Detectd) 04/30/21 10:06 05/01/21 13:31 IDENTIFYING DATA: Patient is a , retired, 70-year-old female significant history of alcohol use, intracranial aneurysm, and chronic benzodiazepine use was admitted for manic-like behavior. HPI: Patient presented to the hospital on 04/30/91, brought in by police under petition filled out by the patient's daughter. The patient's daughter is also the patient is medical power of finance attorney. As per petition, the patient is presenting with psychosis NOS/manic symptoms. She's been noted to be delusional, paranoid, lying, and engaging in increased risk taking behaviors such as drinking alcohol on her medications and at times verbalizing violent threats. She also displayed significantly poor insight into the need for medical treatment. As per EPS report, the patient has been refusing the medicat ions that have been prescribed to her stating that she did not believe that she was on any medications at all. Upon evaluation was provider, the patient appears to be a poor historian events leading up to this hospitalization. The patient believes that she was brought in to the hospital because she signed herself in. She was informed that she was petitioned and certified and therefore was seen involuntary admission. She appears to be difficult to redirect and is unable to provide a clear history of events leading up to this hospitalization. In regards to mood symptoms, the patient reports that she has gone 2-3 days with little to no sleep however is denying any significant manic symptoms of increased goal-directed behavior, mood lability, or grandiosity. Despite this, the patient does appear to present with tangential and pressured speech as well as a euphoric and expansive affect. The patient does not express any significant symptoms of depression at this time. She is not reporting any suicidal or homicidal ideation, intention, and/or plan. She is not reporting any auditory or visual hallucinations. The patient was seen by Dr. Roth on the medical floor on 03/24/2021 who r eported that at that time, the patient was also an inconsistent historian. She was also displaying poor reality testing. The patient was discharged on a regimen of Xanax and trazodone. PAST PSYCHIATRIC HISTORY: Patient is unable to verbalize any previous diagnoses. She is unable to recall what medications that she has been previously prescribed. The patient has had prior psychiatric hospitalization at [facility] in 2013. She does not follow with any outpatient psychiatric provider at this time. Patient denies any history of suicide attempts in the past. PMH: Past Medical History: Unable to Obtain Additional Past Medical History / Comment(s): bipolar, brain aneursym History of Any Multi-Drug Resistant Organisms: None Reported Past Surgical History: No Surgical Hx Reported, Section, Hysterectomy Additional Past Surgical History / Comment(s): hysterectomy,cesarian section Past Psychological History: Bipolar Smoking Status: Never smoker Past Alcohol Use History: Occasional Past Drug Use History: None Reported ALLERGIES: Penicillins CHEMICAL DEPENDENCY HISTORY: As per chart review, the patient does have significant history of going on a binge episodes of alcohol use. However, when confronted, the patient vehemently denies this and states that she only drinks 1 glass of wine "on occasion." FAMILY PSYCHIATRIC/SUBSTANCE USE HISTORY: Patient and chart review revealed that there is significant history of schizophrenia and bipolar disorder in the family. The patient reports that her mother was bipolar. SOCIAL HISTORY: The patient is however currently living with her daughter. She reports that her daughter is her medical power of finance attorney. She is currently retired. MENTAL STATUS EXAM: General Appearance: Patient appears to be stated age is alert, directable, and attempts to cooperate. Patient appears to have fair hygiene and grooming. Behavior: Patient is seated without any agitated behavior. Psychomotor activity is elevated. Eye contact is intense. Speech: Patient's speech is fluent, pressured, hyperverbal, tangential. Mood/Affect: Patient reports their mood is "confused," affect is expansive and at times appears to be euphoric. Suicidal/Homicidal: Patient denies any suicidal or homicidal ideation, intention, and/or plan. Perceptions: Patient denies any visual hallucinations and denies any auditory hallucinations Though content/process: The patient endorses some bizarre delusional thought content and appears to be an inconsistent historian. Thought process appears to be quite tangential with flight of ideas. Memory and concentration: Patient appears to be alert and oriented to person, place, and time however not to events. Concentration appears to be fair. Judgment and insight: poor STRENGTHS/WEAKNESSES: Strength is that the patient is in relatively good health and has a supportive family. Weakness is that the patient displays poor insight and judgment. INTELLECT: average IMPRESSIONS: Bipolar disorder, unspecified Alcohol use disorder, binge type PLAN: -Patient is admitted under involuntary status to [facility] for stabilization of psychiatric symptoms and safety. A second certification was completed and along with petition will be filed for court. -Medications : Seroquel 50 mg at bedtime for mood stabilization. Recommend gradual titration of this medication pending patient's response over the weekend. Depakote ER 500 mg at bedtime for mood stabilization. We will gradually titrate to 750 mg at bedtime over the weekend. -Haldol PRN for agitation/aggression -We will check CIWA every shift for now -Patient was counselled on substance abuse and desired to cut back on use -Patient was informed of the risks, benefits and side effects of the medication and patient verbally consented to taking the medications. Patient signed med consent form and was placed in chart. -Internal Medicine consult to perform medical evaluation and physical. -SW on board for discharge planning. Encourage patient to participate in groups to work on coping skills. 05/01/21 13:31
[2021-05-01] MEDS: ACETAMINOPHEN TAB 325 MG TAB PO PRN (17:06)
[2021-05-01] MEDS: DIVALPROEX ER 500 MG TAB.ER.24H PO SCH (20:27)
[2021-05-01] MEDS: QUEtiapine 25 MG TAB PO SCH (20:28)
--- NOTE | 2021-05-01 23:00 | P.PN ---
Progress Note - Text Progress Note Date: 05/01/21 Patient refused to be seen or evaluated.
[2021-05-02] MEDS: ACETAMINOPHEN TAB 325 MG TAB PO PRN ×3 (00:34→21:17)
[2021-05-02] MEDS ORDERED: traZODone HCL 100 MG TAB PO ONE (01:15)
[2021-05-02] MEDS: PANTOPRAZOLE 40 MG TABLET PO SCH (08:37)
[2021-05-02] MEDS: NICOTINE 14MG/24HR PATCH TRANSDERM SCH (08:39)
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
[2021-05-02] MEDS: DIVALPROEX ER 250 MG TAB.ER.24H PO SCH (21:02)
[2021-05-02] MEDS: QUEtiapine 25 MG TAB PO SCH (21:03)
[2021-05-02] MEDS: MELATONIN 3 MG TABLET PO SCH (21:15)
[2021-05-03] MEDS: NICOTINE 14MG/24HR PATCH TRANSDERM SCH (09:08)
[2021-05-03] MEDS: ACETAMINOPHEN TAB 325 MG TAB PO PRN (09:19)
[2021-05-03] MEDS: PANTOPRAZOLE 40 MG TABLET PO SCH (09:20)
--- NOTE | 2021-05-03 11:20 | P.PN ---
Subjective Progress Note Date: 05/03/21 Principal diagnosis: 1 bipolar disorder manic type Alcohol use disorder unspecified Subjective/objective data: I feel I'm ready to go back home My was here yesterday and he had a nice visit for whole hour I have so much to do for the [place] and have to buy some gifts for my children and my grandchildren Objective data: Patient is appropriate in interaction Affect at this time was euthymic Patient is neatly dressed and groomed and is just stepped out of the shower Thought processes are goal-directed sequential and logical Patient denies any auditory or visual hallucinations No agitation or aggression noted Patient no evidence of any overt psychosis Formal and operational judgment and insight appears to have improved Assessment: Bipolar disorder by history improved Alcohol use disorder unspecified Plan: The patient continues to show improvement Patient at this time does not exhibit any behavior dangerous to herself or others We will work with the social media community manager regarding making appropriate discharge plans and follow-up recommendations Patient reports no side effects from her current medications and we'll continue the same Anibal Verma M.D. 05/03/2021 Objective - Vital Signs Vital signs: Vital Signs Temp 97.9 F 05/02/21 00:35 Pulse 96 05/02/21 00:35 Resp 15 05/02/21 00:35 BP 116/61 05/02/21 00:35 Pulse Ox 95 04/30/21 14:35 - Labs CBC & Chem 7: 05/01/21 06:54 05/01/21 06:54
[2021-05-03] MEDS: QUEtiapine 25 MG TAB PO SCH (20:42)
[2021-05-03] MEDS: DIVALPROEX ER 250 MG TAB.ER.24H PO SCH (20:42)
[2021-05-03] MEDS: MELATONIN 3 MG TABLET PO SCH (20:42)
[2021-05-04 06:48] VITALS: RESP 16; TEMP 97.6
[2021-05-04] MEDS: PANTOPRAZOLE 40 MG TABLET PO SCH (09:03)
[2021-05-04] MEDS: NICOTINE 14MG/24HR PATCH TRANSDERM SCH ×2 (09:03→09:05)
--- NOTE | 2021-05-04 11:22 | P.PN ---
Progress Note - Text Progress Note Date: 05/04/21 Interval History: Patient was seen wandering the hallways and was directable and agreeable to speak with verse writer in the office. The patient appears to be more organized today but is somewhat of a poor historian. She is unable to identify the reason why she was brought into this hospital and admitted to the psychiatric unit. In regards to her psychiatric symptoms, the patient is not reporting any suicidal or homicidal ideation, intention, and/or plan. Unprompted, the patient did state that she feels like her thoughts have been more organized and more linear. Patient is denying any issues regarding her sleep or her appetite. She has been adherent to medications and is not endorsing any significant side effects at this time. The patient reports that she is upset with her because she feels like her might have said something to this provider to keep her another day. The patient was informed that she is under a petition and certificate and that she will have to meet with the flower shop laborer/designer and the mental health court has to be sorted out prior to discharge. The patient is otherwise not reporting any significant issues or concerns regarding any psychotic symptoms. Mental Status Exam: General Appearance: Patient appears to be stated age is alert, directable, and cooperative. Behavior: Patient is calmly seated without any agitated behavior. Speech: Patient's speech is fluent and nonpressured. Mood/Affect: Mood is improving mildly, affect is congruent and slightly expansive. At times, the patient does appear to be quite euphoric. Suicidality/Homicidality: Patient denies having any suicidal or homicidal ideation intent or plan. Perceptions: Patient denies any visual hallucinations and denies any auditory hallucinations Though content/process: The patient appears to be more linear and logical and short conversation today. However, patient does appear to be a poor historian or is unable to display concrete short-term memory. Memory and concentration: AOX3, grossly intact for the purposes of this session Judgment and insight: Improving mildly Vital Signs Temp 97.6 F 05/04/21 06:47 Pulse 61 05/04/21 06:47 Resp 16 05/04/21 06:47 BP 137/63 05/04/21 06:47 Pulse Ox 95 04/30/21 14:35 Assessment Bipolar disorder, unspecified Alcohol use disorder, binge type Plan: -Patient continues to meet criteria for inpatient psychiatric admission for symptom stabilization and safety. The patient has been petitioned and certified. -Medications: Increase Seroquel to 75 mg by mouth at bedtime for mood stabilization. We will continue Depakote ER 750 mg by mouth at bedtime for mood stabilization. We will draw a Depakote level today -When necessary Haldol for agitation/aggression. -SW on board for discharge planning. Encouraged the patient to participate in milieu.
[2021-05-04] MEDS: ACETAMINOPHEN TAB 325 MG TAB PO PRN ×2 (13:54→18:29)
[2021-05-04 13:56] VITALS: BP 136/82; PULSE 76
[2021-05-04] MEDS: DIVALPROEX ER 250 MG TAB.ER.24H PO SCH (20:32)
[2021-05-04] MEDS: MELATONIN 3 MG TABLET PO SCH (20:42)
[2021-05-04] MEDS ORDERED: QUEtiapine 25 MG TAB PO SCH (21:00)
[2021-05-05] MEDS: PANTOPRAZOLE 40 MG TABLET PO SCH (08:33)
[2021-05-05] MEDS ORDERED: diphenhydrAMINE 25 MG CAP PO PRN (10:02)
--- NOTE | 2021-05-05 12:38 | P.DS ---
Providers Date of admission: 04/30/21 14:22 Expected date of discharge: 05/05/21 Attending physician: David Madera MD Consults: 04/30/21 15:06 Consult Physician Routine Consulting Provider: Selina Pierce Consult Reason/Comments: Medical Consultation Do you want consulting provider notified?: Already Contacted Primary care physician: Harry Mora, DO - Discharge Diagnosis(es) (1) Bipolar disorder Current Visit: Yes Status: Acute Priority: High (2) Alcohol consumption binge drinking Current Visit: Yes Status: Chronic Priority: Medium Hospital Course: Admission HPI: Patient is a , retired, 70-year-old female significant history of alcohol use, intracranial aneurysm, and chronic benzodiazepine use was admitted for manic-like behavior. Patient presented to the hospital on 04/30/91, brought in by police under petition filled out by the patient's daughter. The patient's daughter is also the patient is medical power of civil litigation attorney. As per petition, the patient is presenting with psychosis NOS/manic symptoms. She's been noted to be delusional, paranoid, lying, and engaging in increased risk taking behaviors such as drinking alcohol on her medications and at times verbalizing violent threats. She also displayed significantly poor insight into the need for medical treatment. As per EPS report, the patient has been refusing the medications that have been prescribed to her stating that she did not believe that she was on any medications at all. Upon evaluation was provider, the patient appears to be a poor historian events leading up to this hospitalization. The patient believes that she was brought in to the hospital because she signed herself in. She was informed that she was petitioned and certified and therefore was seen involuntary admission. She appears to be difficult to redirect and is unable to provide a clear history of events leading up to this hospitalization. In regards to mood symptoms, the patient reports that she has gone 2-3 days with little to no sleep however is denying any significant manic symptoms of increased goal-directed behavior, mood lability, or grandiosity. Despite this, the patient does appear to present with tangential and pressured speech as well as a euphoric and expansive affect. The patient does not express any significant symptoms of depression at this time. She is not reporting any suicidal or homicidal ideation, intention, and/or plan. She is not reporting any auditory or visual hallucinations. The patient was seen by Dr. Roth on the medical floor on 03/24/2021 who reported that at that time, the patient was also an inconsistent historian. She was also displaying poor reality testing. The patient was discharged on a regimen of Xanax and trazodone. Patient is unable to verbalize any previous diagnoses. She is unable to recall what medications that she has been previously prescribed. The patient has had prior psychiatric hospitalization at [facility] in 2013. She does not follow with any outpatient psychiatric provider at this time. Patient denies any history of suicide attempts in the past. Hospital course: Upon admission to the unit patient was initially resenting with significant manic symptoms putting euphoria, grandiosity, pressured speech, and expansive affect. Patient was however directable and agreeable to commence treatment. Patient got along well with other patients on the unit and followed unit protocol. Patient was compliant with the medications and denied any side effects throughout hospital course. Patient was started on Seroquel and Depakote to address mood stabilization. Patient spoke of her stressors and engaged in therapy both group and individual. Patient was also seen by medical team for history and physical exam. Throughout the course of the hospitalization patient gradually improved with regards to mood stability, sleep and became future oriented with improved insight and judgment. On the day of discharge patient denied any suicidal or homicidal ideations intent or plan denied any auditory or visual hallucinations. Patient endorsed wanting to live for her health and her family. The patient denied any access to guns or weapons. Patient denied any paranoia and did not endorse any delusions. Patient does have a significant history of substance abuse however was counseled on abstaining from all substances including alcohol and marijuana. Patient was offered however declined inpatient substance-abuse rehab. Patient was also counseled on the medications and need for regular compliance and was encouraged to follow-up with their outpatient appointment for mental health and also for primary care. Prior to discharge a family meeting will be arranged by geriatric social worker to answer any questions and ensure safety upon discharge. Significant discussion took place with the patient's daughter who is her medical power of civil litigation attorney and the patient's . There is currently disagreements over the patient's care between the two however APS is involved in his mediating. Mental status exam: General Appearance: Patient appears to be stated age is alert, pleasant, and cooperative. Patient is in no acute distress and has fair hygiene and grooming Behavior: Patient is calmly seated without any agitated behavior. Speech: Patient's speech is fluent and nonpressured. Mood/Affect: Patient reports their mood is "feeling good", affect is congruent and euthymic. Suicidality/Homicidality: Patient denies having any suicidal or homicidal ideation intent or plan. Perceptions: Patient denies any auditory or visual hallucinations. Though content/process: There is no evidence of any delusional thought content and thought process is linear and goal-directed. Patient appears to be future oriented. Memory and concentration: AOX3, grossly intact for the purposes of this session. Can spell "WORLD" backwards correctly. Judgment and insight: Improved with guarded prognosis Vital Signs Temp 97.6 F 05/04/21 06:47 Pulse 76 05/04/21 13:56 Resp 16 05/04/21 06:47 BP 136/82 05/04/21 13:56 Pulse Ox 95 04/30/21 14:35 Impression: Bipolar disorder unspecified Alcohol use disorder, binge type Unspecified neurocognitive disorder Plan: -Continue with discharge today as patient has improved and stabilized psychiatri juliann and is not currently an imminent threat to herself and/or others. Patient will remain at chronically elevated risk for harm to self and/or others due to her impulsivity and polysubstance abuse. -Continue medications: Depakote ER 750 mg by mouth at bedtime for mood stability Melatonin 3 mg daily at bedtime for insomnia Circles any 5 mg by mouth at bedtime for mood stability -Patient was counseled on the need for medication compliance and appropriate follow-up at mental health and also primary care for medical issues. Patient verbalized understanding and agreed. -Social work to arrange for and conduct family meeting to ensure safety upon discharge and answer any questions/concerns. Social work also to arrange for patients follow up appointments for psychiatric care along with follow up with primary care provider. -Patient counseled on abstaining from recreational drugs and marijuana and alcohol. Was informed/educated on the adverse effects on their physical and mental health. Patient verbally agreed and understood. Patient was offered substance abuse treatment however declined at this time. -Patient was instructed to return to the hospital or seek immediate medical care if their psychiatric or medical symptoms do worsen or reoccur. -Psychoeducation and supportive therapy provided to patient. Risks and benefits of pharmacological treatment versus the risks and benefits of nontreatment weight and discussed. Informed consent discussion held. Common side effects of psychotropics discussed such as, but not limited to headache, GI disturbance, sexual dysfunction, movement disorders, sedation, and orthostatic hypotension. Life threatening and blackbox warnings of prescribed medications also discussed. Potential risks of operating a vehicle or heavy machinery discussed with patient at length. Advised on importance of compliance and a reliable and responsible manner. Patient advised to review FDA consumer labeling of all medications prior to taking. Patient verbalized understanding of potential risks, and agrees with current treatment plan. Patient advised to medically contact physician/emergency personnel if any acute changes in condition occur. Allergies Allergy/AdvReac Type Severity Reaction Status Date / Time Penicillins Allergy Unknown Verified 04/30/21 08:53 Laboratory Results WBC 8.5 k/uL (3.8-10.6) 05/01/21 06:54 RBC 4.12 m/uL (3.80-5.40) 05/01/21 06:54 Hgb 12.7 gm/dL (11.4-16.0) 05/01/21 06:54 Hct 40.1 % (34.0-46.0) 05/01/21 06:54 MCV 97.2 fL (80.0-100.0) 05/01/21 06:54 MCH 30.9 pg (25.0-35.0) 05/01/21 06:54 MCHC 31.8 g/dL (31.0-37.0) 05/01/21 06:54 RDW 12.8 % (11.5-15.5) 05/01/21 06:54 Plt Count 294 k/uL (150-450) 05/01/21 06:54 MPV 8.1 05/01/21 06:54 Neutrophils % 53 % 05/01/21 06:54 Lymphocytes % 33 % 05/01/21 06:54 Monocytes % 7 % 05/01/21 06:54 Eosinophils % 4 % 05/01/21 06:54 Basophils % 1 % 05/01/21 06:54 Neutrophils # 4.5 k/uL (1.3-7.7) 05/01/21 06:54 Lymphocytes # 2.8 k/uL (1.0-4.8) 05/01/21 06:54 Monocytes # 0.6 k/uL (0-1.0) 05/01/21 06:54 Eosinophils # 0.3 k/uL (0-0.7) 05/01/21 06:54 Basophils # 0.1 k/uL (0-0.2) 05/01/21 06:54 Sodium 144 mmol/L (137-145) 05/01/21 06:54 Potassium 4.3 mmol/L (3.5-5.1) 05/01/21 06:54 Chloride 107 mmol/L (98-107) 05/01/21 06:54 Carbon Dioxide 28 mmol/L (22-30) 05/01/21 06:54 Anion Gap 9 mmol/L 05/01/21 06:54 BUN 18 mg/dL (7-17) H 05/01/21 06:54 Creatinine 0.79 mg/dL (0.52-1.04) 05/01/21 06:54 Est GFR (CKD-EPI)AfAm 89 (>60 ml/min/1.73 sqM) 05/01/21 06:54 Est GFR (CKD-EPI)NonAf 77 (>60 ml/min/1.73 sqM) 05/01/21 06:54 Glucose 102 mg/dL (74-99) H 05/01/21 06:54 Calcium 9.7 mg/dL (8.4-10.2) 05/01/21 06:54 Total Bilirubin 0.5 mg/dL (0.2-1.3) 05/01/21 06:54 Conjugated Bilirubin 0.0 mg/dL (0.0-0.3) 05/01/21 06:54 Unconjugated Bilirubin 0.4 mg/dL (0.0-1.1) 05/01/21 06:54 Delta Bilirubin 0.1 mg/dL (0.0-0.2) 05/01/21 06:54 AST 24 U/L (14-36) 05/01/21 06:54 ALT 14 U/L (4-34) 05/01/21 06:54 Alkaline Phosphatase 60 U/L (38-126) 05/01/21 06:54 Total Protein 7.1 g/dL (6.3-8.2) 05/01/21 06:54 Albumin 3.9 g/dL (3.5-5.0) 05/01/21 06:54 TSH 2.080 mIU/L (0.465-4.680) 05/01/21 06:54 Urine Color Light Yellow 04/30/21 01:04 Urine Appearance Clear (Clear) 04/30/21 01:04 Urine pH 6.0 (5.0-8.0) 04/30/21 01:04 Ur Specific [place] 1.006 (1.001-1.035) 04/30/21 01:04 Urine Protein Negative (Negative) 04/30/21 01:04 Urine Glucose (UA) Negative (Negative) 04/30/21 01:04 Urine Ketones Negative (Negative) 04/30/21 01:04 Urine Blood Negative (Negative) 04/30/21 01:04 Urine Nitrite Negative (Negative) 04/30/21 01:04 Urine Bilirubin Negative (Negative) 04/30/21 01:04 Urine Urobilinogen <2.0 mg/dL (<2.0) 04/30/21 01:04 Ur Leukocyte Esterase Large (Negative) H 04/30/21 01:04 Urine RBC 13 /hpf (0-5) H 04/30/21 01:04 Urine WBC 12 /hpf (0-5) H 04/30/21 01:04 Ur Squamous Epith Cells 5 /hpf (0-4) H 04/30/21 01:04 Urine HCG, Qual Not Detected (Not Detectd) 04/30/21 00:24 Urine Opiates Screen Not Detected (NotDetected) 04/30/21 00:24 Ur Oxycodone Screen Not Detected (NotDetected) 04/30/21 00:24 Urine Methadone Screen Not Detected (NotDetected) 04/30/21 00:24 Ur Propoxyphene Screen Not Detected (NotDetected) 04/30/21 00:24 Ur Barbiturates Screen Not Detected (NotDetected) 04/30/21 00:24 Valproic Acid 76.5 ug/mL 05/04/21 11:19 U Tricyclic Antidepress Not Detected (NotDetected) 04/30/21 00:24 Ur Phencyclidine Scrn Not Detected (NotDetected) 04/30/21 00:24 Ur Amphetamines Screen Not Detected (NotDetected) 04/30/21 00:24 U Methamphetamines Scrn Not Detected (NotDetected) 04/30/21 00:24 U Benzodiazepines Scrn Detected (NotDetected) H 04/30/21 00:24 Urine Cocaine Screen Not Detected (NotDetected) 04/30/21 00:24 U Marijuana (THC) Screen Not Detected (NotDetected) 04/30/21 00:24 Coronavirus (PCR) Not Detected (Not Detectd) 04/30/21 10:06 Patient Condition at Discharge: Stable Plan - Discharge Summary Discharge Rx Participant: No New Discharge Prescriptions: New Pantoprazole [Protonix] 40 mg PO AC-BRKFST 30 Days tab Divalproex ER [Depakote ER] 750 mg PO HS 30 Days tab Melatonin 3 mg PO HS 30 Days tablet QUEtiapine [SEROquel] 75 mg PO HS 30 Days tab Discontinued traZODone HCL 50 mg PO HS Omeprazole 40 mg PO DAILY QUEtiapine [SEROquel] 50 mg PO HS Atorvastatin [Lipitor] 10 mg PO HS ALPRAZolam [Xanax] 0.5 mg PO TID PRN PRN Reason: Anxiety Divalproex Sodium [Divalproex Sodium ER] 250 mg PO QAM Divalproex Sodium [Divalproex Sodium ER] 500 mg PO HS Discharge Medication List Divalproex ER [Depakote ER] 750 mg PO HS 30 Days tab 05/05/21 [Rx] Melatonin 3 mg PO HS 30 Days tablet 05/05/21 [Rx] Pantoprazole [Protonix] 40 mg PO AC-BRKFST 30 Days tab 05/05/21 [Rx] QUEtiapine [SEROquel] 75 mg PO HS 30 Days tab 05/05/21 [Rx] Follow up Appointment(s)/Referral(s): Tori Oliver [Other] - 05/19/21 12:00 pm Harry Mora DO [Primary Care Provider] - 1-2 days Patient Instructions/Handouts: Quetiapine (By mouth), Mood Disorders (DC), Bipolar Disorder (DC), Suicide Prevention (DC), Depression in Older Adults (DC) Activity/Diet/Wound Care/Special Instructions: Activity and diet as tolerated. Avoid the use of street drugs and alcohol. Take all medications as prescribed. When you are in need of refills on your medications please contact your medical provider and/or outpatient psychiatrist to have this done. Please go to scheduled outpatient appointment for aftercare treatment. If symptoms return or become worse, call the crisis line at and/or go to the nearest emergency room for evaluation Discharge Disposition: HOME SELF-CARE
== END 2021-05-05 13:42 | disposition home or self-care (01) | DRG 885 ==
LOC: EC 23:14 → 3MHU 04-30 14:22
PROVIDERS: ADMIT Psychiatry & Neurology Psychiatry; ATTEND Psychiatry & Neurology Psychiatry
DX: F31.9 Bipolar disorder, unspecified (principal); F23 Brief psychotic disorder; F10.10 Alcohol abuse, uncomplicated; G47.00 Insomnia, unspecified; Z79.899 Other long term (current) drug therapy; Z81.8 Family history of other mental and behavioral disorders; Z82.3 Family history of stroke; Z82.49 Family history of ischemic heart disease and other diseases of the circulatory system; Z90.710 Acquired absence of both cervix and uterus; Z20.822 Contact with and (suspected) exposure to COVID-19
CPT/HCPCS: 36415; 80048; 80053; 80164; 80306; 81001; 81025; 82075; 82248; 84443; 85025; 87086; 87635; 99285

== ENCOUNTER → 2023-04-11 | Outpatient (CLI) | payer MEDICARE, OTHER ==
--- NOTE | 2023-04-11 11:46 | MR ---
EXAMINATION TYPE: MR brain wo con DATE OF EXAM: 04/11/2023 COMPARISON: 03/24/2021 HISTORY: Cerebral infarction TECHNIQUE: T1-weighted sagittal, T2, FLAIR, and diffusion axial, and T2 coronal coronal views of the brain are submitted. FINDINGS: There is no evidence of acute ischemia. There is moderate generalized degenerative change and nonspecific white matter changes most typical r emote ischemia. More localized area of abnormal signal involving the left temporal lobe compatible wi th previous ischemia. No midline shift or mass effect. Small focal areas of abnormal signal involving the basal ganglia may represent prominent [place] spaces or tiny areas of remote lacunar infar ct. Orbits are symmetric. Changes of chronic sinusitis. Craniocervical junction maintained. Previously no [place] suspected 3 mm left distal ICA aneurysm stable. 7 mm nodule in the posterior right subcutaneous t issues near the skull base is nonspecific but likely on the basis of a small sebaceous cyst. IMPRESSION: 1. No acute intracranial process 2. Moderate degenerative and mild remote microvascular ischemic white matter changes. More localized area of remote ischemia involving the left temporal lobe. 3. Stable appearing distal left ICA 3 mm aneurysm.
--- NOTE | 2023-04-11 11:54 | US ---
EXAMINATION TYPE: US carotid duplex BILAT DATE OF EXAM: 04/11/2023 COMPARISON: CLINICAL INDICATION: Female, 72 years old with history of I63.9 CEREBRAL INFARCTION; Cerebral event x 1 year ago, still has a hard time talking but has improved TECHNIQUE: Carotid duplex ultrasound examination. Indirect Doppler criteria was utilized. FINDINGS: EXAM MEASUREMENTS: RIGHT: Peak Systolic Velocity (PSV) cm/sec ----- Right CCA: 65.1 ----- Right ICA: 66.6 ----- Right ECA: 58.1 ICA/CCA ratio: 1.0 RIGHT: End Diastole cm/sec ----- Right CCA: 13.6 ----- Right ICA: 18.9 ----- Right ECA: 10.1 LEFT: Peak Systolic Velocity (PSV) cm/sec ----- Left CCA: 67.7 ----- Left ICA: 80.9 ----- Left ECA: 75.3 ICA/CCA ratio: 1.2 LEFT: End Diastole cm/sec ----- Left CCA: 13.6 ----- Left ICA: 22.6 ----- Left ECA: 0.0 VERTEBRALS (direction of flow): Right Vertebral: Antegrade Left Vertebral: Antegrade Rhythm: Normal FERTILIZER LOADER NOTES: Plaque in bilateral bulbs and proximal left CCA. Bilateral wall thickening. No e levated velocities or significant stenosis. IMPRESSION: Less than 50% stenosis of the bilateral carotid bifurcations. Criteria for Assigning % of Stenosis / Diameter reduction (Estimation based on the indirect measurements of the internal carotid artery velocities (ICA PSV). 1. Normal (no stenosis)=ICA PSV < 125 cm/s: ratio < 2.0: ICA EDV<40 cm/s. 2. Less than 50% stenosis=ICA PSV < 125 cm/s: ratio < 2.0: ICA EDV<40 cm/s. 3. 50 to 69% stenosis=ICA PSV of 125 to 230 cm/s: ration 2.0 ? 4.0: ICA EDV 40-100 cm/s. 4. Greater than 70% stenosis to near occlusion= ICA PSV > 230 cm/s: ratio > 4.0: ICA EDV > 100 cm/s. 5. Near occlusion= ICA PSV velocities may be low or undetectable: variable ratio and ICA EDV. 6. Total occlusion=unable to detect flow.
== END | disposition home or self-care (01) ==
LOC: RADMRIMAIN 10:22
PROVIDERS: ATTEND Internal Medicine
DX: I67.82 Cerebral ischemia (principal); I63.9 Cerebral infarction, unspecified; I72.0 Aneurysm of carotid artery; I65.23 Occlusion and stenosis of bilateral carotid arteries
CPT/HCPCS: 70551; 93880

== ENCOUNTER 2024-11-12 17:39 | Observation (INO) | payer MEDICARE, OTHER ==
--- NOTE | 2024-11-12 19:20 | ED ---
General Adult HPI - General Source: patient Mode of arrival: ambulatory Limitations: no limitations <Bianca Hook - Last Filed: 11/12/24 19:45> - General Source: patient, RN notes reviewed, old records reviewed Mode of arrival: ambulatory Limitations: no limitations - History of Present Illness -: unknown Consistency: intermittent Worsens with: none Associated Symptoms: confusion Treatments Prior to Arrival: none <Freedom Hernández - Last Filed: 11/17/24 13:05> - General Chief complaint: Altered Mental Status Stated complaint: Evaluation Time Seen by Provider: 11/12/24 19:20 - History of Present Illness Initial comments: Quick note: 73-year-old female here with her . states that the patient "needs help". Patient was not feeling well and did not want to go to her neurologist appointment today, is concerned that she is refusing care. He believes that she needs a mental health evaluation and states that he is prepared to petition her if needed. He also states that they need "follow- up" for an MRI she had done recently. (Bianca Hook) This is a 73 female to the ER for evaluation patient in today for evaluation of needing help. Family and patient have been concerned about her mental status daughter is concerned about her mental status and they wanted to petition for evaluation patient was was have a neurologist appointment today to follow-up regarding MRI showing that she recently had acute CVA and she has not had treatment (Freedom Hernández) - Related Data Home Medications Medication Instructions Recorded Confirmed Donepezil [Aricept] 5 mg PO HS 11/13/24 11/13/24 Ibuprofen [Motrin] 800 mg PO Q8H PRN 11/13/24 11/13/24 Omeprazole [PriLOSEC] 40 mg PO DAILY 11/13/24 11/13/24 Previous Rx's Medication Instructions Recorded Divalproex ER [Depakote ER] 750 mg PO HS 30 Days tab 05/05/21 QUEtiapine [SEROquel] 100 mg PO HS 30 Days #30 tab 11/14/24 amLODIPine [Norvasc] 5 mg PO DAILY 30 Days #30 tab 11/14/24 Allergies Allergy/AdvReac Type Severity Reaction Status Date / Time Penicillins Allergy Unknown Verified 11/13/24 12:00 Review of Systems ROS Other: All systems not noted in ROS Statement are negative. <MonsterChrisconnor - Last Filed: 11/12/24 19:45> ROS Other: All systems not noted in ROS Statement are negative. <EdelmiraenochrobbieFreedom Deana - Last Filed: 11/17/24 13:05> ROS Statement: Those systems with pertinent positive or pertinent negative responses have been documented in the HPI. Past Medical History Past Medical History: Unable to Obtain Additional Past Medical History / Comment(s): bipolar, brain aneursym History of Any Multi-Drug Resistant Organisms: None Reported Past Surgical History: No Surgical Hx Reported, Section, Hysterectomy Additional Past Surgical History / Comment(s): hysterectomy,cesarian section Past Psychological History: Bipolar Smoking Status: Never smoker Past Alcohol Use History: Occasional Past Drug Use History: None Reported - Past Family History Mother Family Medical History: CVA/TIA, Hypertension, Thyroid Disorder Additional Family Medical History / Comment(s): schizophrenia <Bianca Hook - Last Filed: 11/12/24 19:45> General Exam Limitations: no limitations <Hook,Chrisconnor - Last Filed: 11/12/24 19:45> General appearance: alert, in no apparent distress Head exam: Present: atraumatic, normocephalic, normal inspection Eye exam: Present: normal appearance, PERRL, EOMI. Absent: scleral icterus, conjunctival injection, periorbital swelling ENT exam: Present: normal exam, mucous membranes moist Neck exam: Present: normal inspection. Absent: tenderness, meningismus, lymphadenopathy Respiratory exam: Present: normal lung sounds bilaterally. Absent: respiratory distress, wheezes, rales, rhonchi, stridor Cardiovascular Exam: Present: regular rate, normal rhythm, normal heart sounds. Absent: systolic murmur, diastolic murmur, rubs, gallop, clicks GI/Abdominal exam: Present: soft, normal bowel sounds. Absent: distended, tenderness, guarding, rebound, rigid Extremities exam: Present: normal inspection, full ROM, normal capillary refill. Absent: tenderness, pedal edema, joint swelling, calf tenderness Back exam: Present: normal inspection Neurological exam: Present: alert, oriented X3, CN II-XII intact Psychiatric exam: Present: normal affect, normal mood Skin exam: Present: warm, dry, intact, normal color. Absent: rash <Freedom Hernández - Last Filed: 11/17/24 13:05> - General Exam Comments Initial Comments: Visual Physical Exam Vital signs reviewed General: Well-appearing, nontoxic, no acute distress. Head: Normocephalic, atraumatic Eyes: PERRLA, EOMI ENT: Airway patent Chest: Nonlabored breathing Skin: No visual rash, normal skin tone Neuro: Alert and oriented 3 Musculoskeletal: No gross abnormalities (Bianca Hook) Course <Freedom Hernández - Last Filed: 11/17/24 13:05> Vital Signs 11/12/24 11/13/24 11/13/24 17:42 08:19 14:09 Temperature 98.6 F 97.8 F 98 F Pulse Rate 104 H 80 94 Respiratory 18 16 16 Rate Blood Pressure 155/76 161/92 152/81 O2 Sat by Pulse 96 97 98 Oximetry - Reevaluation(s) Reevaluation #1: 11/12/24 22:28 Medical records reviewed (Freedom Hernández) Reevaluation #2: 11/12/24 22:28 Patient is argumentative throughout ER stay, petition for evaluation regarding both physical and mental health (Freedom Hernández) Reevaluation #3: 11/12/24 22:28 Patient informed of results questions answered (Freedom Hernández) Reevaluation #4: Was pt. sent in by a medical professional or institution (, PA, WIRE STRIPPER, urgent care, hospital, or retirement...) When possible be specific @ -no Did you speak to anyone other than the patient for history (EMS, parent, family, police, friend...)? What history was obtained from this source @ -no Did you review nursing and triage notes (agree or disagree)? Why? @ -agree Are old charts reviewed (outside hosp., previous admission, EMS record, old EKG, old radiological studies, urgent care reports/EKG's, retirement records)? Report findings @ -yes Differential Diagnosis (chest pain, altered mental status, abdominal pain women, abdominal pain men, vaginal bleeding, weakness, fever, dyspnea, syncope, headache, dizziness, GI bleed, back pain, seizure, CVA, palpatations, mental hea lth, musculoskeletal)? @ -prior EKG interpreted by me (3pts min.). @ -yes X-rays interpreted by me (1pt min.). @ -yes negative for acute disease CT interpreted by me (1pt min.). @ -no U/S interpreted by me (1pt. min.). @ -no What testing was considered but not performed or refused? (CT, X-rays, U/S, labs)? Why? @ -none What meds were considered but not given or refused? Why? @ -none Did you discuss the management of the patient with other professionals (professionals i.e. DrViktoriya, PA, WIRE STRIPPER, lab, RT, psych nurse, social insurance administrator, tube draw helper, teacher, railway patrol officer, case reviewer)? Give summary @ -no Was smoking cessation discussed for >3mins.? @ -no Was critical care preformed (if so, how long)? @ -no Were there social determinants of health that impacted care today? How? (Homelessness, low income, unemployed, alcoholism, drug addiction, transportation, low edu. Level, literacy, decrease access to med. care, care home, rehab)? @ -none Was there de-escalation of care discussed even if they declined (Discuss DNR or withdrawal of care, Hospice)? DNR status @ -no What co-morbidities impacted this encounter? (DM, HTN, Smoking, COPD, CAD, Cancer, CVA, ARF, Chemo, Hep., AIDS, mental health diagnosis, sleep apnea, morbid obesity)? @ -none Was patient admitted / discharged? Hospital course, mention meds given and route, prescriptions, significant lab abnormalities, going to OR and other per tinent info. @ - 73 female to the ER for evaluation of altered mental status and acute psychosis. Recent CVA per MRI. Patient will admit for neurology evaluation regarding CVA causes of personality issue versus psychiatry history of positive recent CVA Admitted Undiagnosed new problem with uncertain prognosis? @ -no Drug Therapy requiring intensive monitoring for toxicity (Heparin, Nitro, Insu taylor, Cardizem)? @ -no Were any procedures done? @ -no Diagnosis/symptom? @ -CVA, acute psychosis Acute, or Chronic, or Acute on Chronic? @ -Acute Uncomplicated (without systemic symptoms) or Complicated (systemic symptoms)? @ -Complicated Side effects of treatment? @ -no Exacerbation, Progression, or Severe Exacerbation? @ -exacerbation Poses a threat to life or bodily function? How? (Chest pain, [place], [place], pneumonia, PE, COPD, DKA, ARF, appy, cholecystitis, CVA, Diverticulitis, Homicidal, Suicidal, threat to staff... and all critical care pts) @ -yes recent CVA (Freedom Hernández) Reevaluation #5: Differential CVA Ischemic stroke, hemorrhagic stroke, brain tumor, atypical migraine, Wernicke's encephalopathy, seizure, multiple sclerosis, meningitis, encephalitis, hypoglycemia, Guillain-Santana, electrolytes disturbance, myasthenia gravis.... This is not meant to be an all-inclusive list differential Mental Health Depression, anxiety, bipolar, psychosis, schizophrenia, borderline personality, situational depression, adjustment disorder, behavioral disorder, brain tumor, malingering, substance abuse, encephalopathy, medication reaction, dementia, hypothyroidism, degenerative neurologic disorder, lupus.... This is not meant to be all-inclusive list (Freedom Hernández) - Consultations Consultation #1: Spoke with sound who agrees to admit this patient (Freedom Hernández) EKG Findings - EKG Comments: EKG Findings:: EKG is sinus 71 MD 146 QRS 88 QTc 436 - EKG Results: EKG: interpreted by ERMD <Freedom Hernández - Last Filed: 11/17/24 13:05> Medical Decision Making <Bianca Hook - Last Filed: 11/12/24 19:45> - Lab Data Result diagrams: 11/13/24 06:09 11/13/24 06:09 - Radiology Data Radiology results: report reviewed (Chest x-ray is negative for acute), image reviewed <Freedom Hernández - Last Filed: 11/17/24 13:05> - Medical Decision Making I performed the quick note portion of this visit, electronically signed Bianca Liz PA-C) 73 female to the ER for evaluation of altered mental status and acute psychosis. Recent CVA per MRI. Patient will admit for neurology evaluation regarding CVA causes of personality issue versus psychiatry history of positive recent CVA (Freedom Hernández) - Lab Data Lab Results 11/12/24 11/12/24 Range/Units 19:30 19:30 Urine Color Colorless Urine Appearance Clear (Clear) Urine pH 5.5 (5.0-8.0) Ur Specific [place] 1.007 (1.001-1.035) Urine Protein Negative (Negative) Urine Glucose (UA) Negative (Negative) Urine Ketones Negative (Negative) Urine Blood Negative (Negative) Urine Nitrite Negative (Negative) Urine Bilirubin Negative (Negative) Urine Urobilinogen <2.0 (<2.0) mg/dL Ur Leukocyte Esterase Negative (Negative) Urine Opiates Screen Not Detected (NotDetected) Ur Oxycodone Screen Not Detected (NotDetected) Urine Methadone Screen Not Detected (NotDetected) Ur Barbiturates Screen Not Detected (NotDetected) U Tricyclic Antidepress Detected H (NotDetected) Ur Phencyclidine Scrn Not Detected (NotDetected) Ur Amphetamines Screen Not Detected (NotDetected) U Methamphetamines Scrn Not Detected (NotDetected) U Benzodiazepines Scrn Not Detected (NotDetected) Urine Cocaine Screen Not Detected (NotDetected) U Marijuana (THC) Screen Detected H (NotDetected) Disposition <Bianca Hook - Last Filed: 11/12/24 19:45> Is patient prescribed a controlled substance at d/c from ED?: No Time of Disposition: 22:00 <Freedom Hernández - Last Filed: 11/17/24 13:05> Clinical Impression: Altered mental status, Bipolar disorder, Psychosis, Acute psychosis, Delirium due to general medical condition, CVA (cerebral vascular accident) Disposition: ADMITTED IP TO THIS [facility] Condition: Stable
[2024-11-12 21:05] LABS: Barbiturate Screen,Urine Not Detected (NotDetected); Benzodiazepines Screen,Urine Not Detected (NotDetected); Opiate Screen,Urine Not Detected (NotDetected); Oxycodone Screen, Urine Not Detected (NotDetected); Phencyclidine Screen,Urine Not Detected (NotDetected); Tricyclic Antidepressant,Urine Detected (NotDetected); Urn Cannabinoid Scrn Detected (NotDetected)
[2024-11-12] MEDS ORDERED: NALOXONE 0.4 MG/ML 1 ML VIAL IV PRN (21:43)
[2024-11-12] MEDS ORDERED: ONDANSETRON 4 MG/2 ML VIAL IVP PRN (21:43)
[2024-11-12] MEDS: HALOPERIDOL LACTATE 5 MG/ML 1 ML VIAL IM STA (22:27)
[2024-11-12] MEDS: LORazepam 1 MG/0.5 ML VIAL IV STA (22:58)
[2024-11-12] MEDS: SODIUM CHLORIDE 0.9% 1,000 ML IV SCH (22:59)
[2024-11-12] MEDS: SODIUM CHLORIDE 0.9% 1,000 ML IV STA (22:59)
--- NOTE | 2024-11-12 23:00 | XR ---
EXAMINATION TYPE: XR chest 2V DATE OF EXAM: 11/12/2024 10:24 PM COMPARISON: Chest radiographs from 03/22/2021 TECHNIQUE: XR chest 2V Frontal and lateral views of the chest. CLINICAL INDICATION:Female, 73 years old with history of altered mental status; FINDINGS: Lungs/Pleura: There is no evidence of pleural effusion, focal consolidation, or pneumothorax. Pulmonary vascularity: Unremarkable. Heart/mediastinum: Cardiomediastinal silhouette is prominent in size. Musculoskeletal: Multiple level degenerative disc disease changes seen throughout the spine. Dextrocu rvature of the thoracic spine. IMPRESSION: No acute cardiopulmonary disease/process. [facility], , 11/12/2024 10:58 PM
[2024-11-12 23:29] LABS: Basophils # (A) 0.08 10*3/uL (0.00-0.10); Basophils % (A) 0.8 %; Eosinophils # (A) 0.44 10*3/uL (0.04-0.35); Eosinophils % (A) 4.3 %; HCT 36.0 % (37.2-46.3); HGB 12.2 g/dL (12.0-15.0); Lymphocytes # (A) 3.04 10*3/uL (0.90-5.00); Lymphocytes % (A) 29.6 %; MCH 30.3 pg (27.0-32.0); MCHC 33.9 g/dL (32.0-37.0); MCV 89.6 fL (80.0-97.0); Monocytes # (A) 0.81 10*3/uL (0.20-1.00); Monocytes % (A) 7.9 %; Neutrophils # (A) 5.89 10*3/uL (1.80-7.70); Neutrophils % (A) 57.2 %; Platelet Count 298 10*3/uL (140-440); RBC 4.02 10*6/uL (4.10-5.20); RDW 13.4 % (11.5-14.5); WBC 10.28 10*3/uL (4.50-10.00)
[2024-11-12 23:39] LABS: ALT 18 U/L (4-34); Acetaminophen <10.0 ug/mL; African American GFR (CKD) >90 (>60 ml/min/1.73 sqM); Anion Gap 10 mmol/L; Blood Urea Nitrogen 13 mg/dL (7-17); Calcium 9.8 mg/dL (8.4-10.2); Carbon Dioxide 23 mmol/L (22-30); Chloride 106 mmol/L (98-107); Glucose 99 mg/dL (74-99); Lipase 71 U/L (23-300); Non-African American GFR(CKD) >90 (>60 ml/min/1.73 sqM); Salicylate <1.0 mg/dL; Sodium 139 mmol/L (137-145)
[2024-11-12 23:45] LABS: AST 31 U/L (14-36); Albumin 4.3 g/dL (3.5-5.0); Alkaline Phosphatase 76 U/L (38-126); Potassium 4.9 mmol/L (3.5-5.1); Total Protein 7.3 g/dL (6.3-8.2)
--- NOTE | 2024-11-13 04:17 | P.HPIM ---
History of Present Illness H&P Date: 11/13/24 Chief Complaint: Change in mental status and confusion The patient 73-year-old female the history was obtained from the chart because the patient is unable to give a history. The patient was presented per family with confusion and psychotic behavior. Review of the chart shows that in 2022 patient was hospitalized for similar concerns. It states the patient has a significant history of alcohol abuse and substance abuse. The patient had a urine drug test in the emergency room that was positive for marijuana and tricyclic's. Family states she had a recent MRI that showed a stroke and she has not been able to see a neurologist. Per the patient was refusing to go to see the neurologist. The patient had a WBC of 10.2, hemoglobin 12.2, sodium 139, BUN 13, creatinine 0.59, ammonia of 12. Patient was hospitalized for further workup and management. Review of Systems ROS unobtainable: due to mental status Past Medical History Past Medical History: Unable to Obtain Additional Past Medical History / Comment(s): bipolar, brain aneursym History of Any Multi-Drug Resistant Organisms: None Reported Past Surgical History: No Surgical Hx Reported, Section, Hysterectomy Additional Past Surgical History / Comment(s): hysterectomy,cesarian section Past Psychological History: Bipolar Smoking Status: Never smoker Past Alcohol Use History: Occasional Past Drug Use History: None Reported - Past Family History Mother Family Medical History: CVA/TIA, Hypertension, Thyroid Disorder Additional Family Medical History / Comment(s): schizophrenia Medications and Allergies Home Medications Medication Instructions Recorded Confirmed Type Divalproex ER [Depakote ER] 750 mg PO HS 30 Days tab 05/05/21 Rx Melatonin 3 mg PO HS 30 Days tablet 05/05/21 Rx Pantoprazole [Protonix] 40 mg PO AC-BRKFST 30 Days tab 05/05/21 Rx QUEtiapine [SEROquel] 75 mg PO HS 30 Days tab 05/05/21 Rx Allergies Allergy/AdvReac Type Severity Reaction Status Date / Time Penicillins Allergy Unknown Verified 11/12/24 17:46 Physical Exam Vitals: Vital Signs Temp Pulse Resp BP Pulse Ox 11/12/24 17:42 98.6 F 104 H 18 155/76 96 Intake and Output 11/12/24 11/12/24 11/13/24 14:59 22:59 06:59 Other: Weight 68.039 kg - Constitutional General appearance: no acute distress - Respiratory Respiratory: bilateral: CTA - Cardiovascular Rhythm: regular - Gastrointestinal General gastrointestinal: normal bowel sounds - Integumentary Integumentary: normal ( not following commands, not oriented speaking clearly) Results CBC & Chem 7: 11/12/24 22:59 11/12/24 22:59 Labs: Abnormal Lab Results - Last 24 Hours (Table) 11/12/24 11/12/24 Range/Units 19:30 22:59 WBC 10.28 H (4.50-10.00) 10*3/uL RBC 4.02 L (4.10-5.20) 10*6/uL Hct 36.0 L (37.2-46.3) % Eosinophils # 0.44 H (0.04-0.35) 10*3/uL U Tricyclic Antidepress Detected H (NotDetected) U Marijuana (THC) Screen Detected H (NotDetected) Assessment and Plan (1) Acute psychosis Current Visit: Yes Status: Acute Code(s): F23 - BRIEF PSYCHOTIC DISORDER SNOMED Code(s): 20247367892932 (2) Bipolar disorder Current Visit: Yes Status: Acute Priority: High Code(s): F31.9 - BIPOLAR DISORDER, UNSPECIFIED SNOMED Code(s): 37715868 (3) Psychosis Current Visit: Yes Status: Acute Code(s): F29 - UNSP PSYCHOSIS NOT DUE TO A SUBSTANCE OR KNOWN PHYSIOL COND SNOMED Code(s): 59579438 Plan: Patient who by report has a history of bipolar disorder, presents with psychosis, per family recent MRI with history of CVA. Plan for your neurology consult, will await results of MRI to determine further workup.
[2024-11-13 06:36] LABS: Basophils # (A) 0.08 10*3/uL (0.00-0.10); Basophils % (A) 0.8 %; Eosinophils # (A) 0.55 10*3/uL (0.04-0.35); Eosinophils % (A) 5.7 %; HCT 35.7 % (37.2-46.3); HGB 12.0 g/dL (12.0-15.0); Lymphocytes # (A) 2.60 10*3/uL (0.90-5.00); Lymphocytes % (A) 27.2 %; MCH 30.2 pg (27.0-32.0); MCHC 33.6 g/dL (32.0-37.0); MCV 89.9 fL (80.0-97.0); Monocytes # (A) 0.73 10*3/uL (0.20-1.00); Monocytes % (A) 7.6 %; Neutrophils # (A) 5.59 10*3/uL (1.80-7.70); Neutrophils % (A) 58.5 %; Platelet Count 293 10*3/uL (140-440); RBC 3.97 10*6/uL (4.10-5.20); RDW 13.3 % (11.5-14.5); WBC 9.57 10*3/uL (4.50-10.00)
[2024-11-13 06:42] LABS: ALT 16 U/L (4-34); AST 23 U/L (14-36); African American GFR (CKD) >90 (>60 ml/min/1.73 sqM); Albumin 3.7 g/dL (3.5-5.0); Alkaline Phosphatase 64 U/L (38-126); Anion Gap 7 mmol/L; Blood Urea Nitrogen 12 mg/dL (7-17); Calcium 9.6 mg/dL (8.4-10.2); Carbon Dioxide 26 mmol/L (22-30); Chloride 107 mmol/L (98-107); Glucose 92 mg/dL (74-99); Magnesium 2.1 mg/dL (1.6-2.3); Non-African American GFR(CKD) >90 (>60 ml/min/1.73 sqM); Potassium 4.4 mmol/L (3.5-5.1); Sodium 140 mmol/L (137-145); Total Protein 6.4 g/dL (6.3-8.2)
[2024-11-13] MEDS: PANTOPRAZOLE 40 MG TABLET PO SCH (08:20)
[2024-11-13 08:54] LABS: Bilirubin,Urine Negative (Negative); Blood,Urine Negative (Negative); Color,Urine Colorless; Glucose,Urine (UA) Negative (Negative); Ketones,Urine Negative (Negative); Leukocyte Esterase,Urine Negative (Negative); Nitrite,Urine Negative (Negative); PH, Urine 5.5 (5.0-8.0); Protein,Urine Negative (Negative); Specific Gravity,Urine 1.007 (1.001-1.035); Urobilinogen,Urine <2.0 mg/dL (<2.0)
--- NOTE | 2024-11-13 10:46 | CT ---
EXAMINATION TYPE: CT brain wo con DATE OF EXAM: 11/13/2024 COMPARISON: CLINICAL INDICATION: Female, 73 years old with history of confusion; PHH, AMS. TECHNIQUE: CT scan of the head is performed without contrast. CT DLP: 1097.[address] CTDI: mGy Automated exposure control for dose reduction was used. FINDINGS: There is no acute intracranial hemorrhage or midline shift identified. There is diffuse v entricular and sulcal prominence consistent with diffuse age-related cerebral atrophy. Nonacute decre ased attenuation within the posterior left temporal lobe. Correlate for remote insult. Basal ganglia calcifications seen. There is low-attenuation in the periventricular white matter consistent with chr onic small vessel ischemic change. The globes are intact and the visualized sinuses are clear. IMPRESSION: No acute intracranial hemorrhage or midline shift. There is diffuse age-related cerebra l atrophy and chronic small vessel ischemic change noted. [facility], , 11/13/2024 10:43 AM
[2024-11-13] MEDS ORDERED: OLANZapine 10 MG VIAL IM PRN (13:34)
[2024-11-13] MEDS ORDERED: OLANZapine 5 MG TAB PO PRN (13:34)
--- NOTE | 2024-11-13 13:46 | P.CN ---
Psychiatric Consult - . Consult date: 11/13/24 Consult:: 11/13/24 13:36 IDENTIFYING DATA: This patient is a 73-year-old female, unemployed and living with her REASON FOR REFERRAL: Psychiatry was consulted for psychosis HISTORY OF PRESENT ILLNESS: The patient presented to the hospital with concerns regarding altered mental status after refusing care with neurologist. Patient reportedly was informed of having a CVA after MRI. She has a history of bipolar disorder and was last seen on the [facility] in 2020 and was discharged on Depakote and Seroquel. Patient seen and evaluated in her room with at bedside. wished to speak to underwriter solicitation director before interview with the patient. He states he has been to patient for close to 20 years and she has a history of trauma during her childhood. He states because of this patient tends to isolate when she is stressed out and he feels as though this is what is going on right now as he recently started a new job and is gone for 5 days out of the week, leaving patient home alone. Patient is not able to drive as her car is being fixed and is unable to fix this. Patient has been exhibiting predominant dementia symptoms, being more forgetful, forgetting where her son live while driving in the car which sparked concern for patient's daughter. Patient was A&Ox2, unable to state the location or place. She exhibited confusion throughout the interview to which does admit to patient being more forgetful recently. She states being here in the hospital due to vomiting, unaware of recent concerns regarding altered mental status. did admit to recent discussions regarding dementia for patient, she has been exhibiting some paranoia towards and feeling as though he is trying to kill her and saying mean things to him as well. Patient's feels as though marijuana is contributing to her paranoia. He reports a history of aphasia after a fall back in 2019 however patient was doing relatively well until he began this new job. Patient states she has been nonadherent with her Depakote but claims to have been taking her Seroquel. At this time patient denies any suicidal or homicidal ideations, intent or plan. Patient denies any auditory, visual hallucinations and denies any paranoia or delusions. Patients admits to using no substances despite positive UDS for marijuana. PAST PSYCHIATRIC HISTORY: Patient has a history of bipolar disorder, alcohol use disorder. Patient has only been taking Seroquel 75 mg per chart review also lists Depakote ER 750 mg at bedtime. Patient was last admitted to the [facility] from 04/30-05/05/2021 with a diagnosis of bipolar disorder. Patient denies any psychiatric outpatient follow-up. Patient denies any history of suicide attempts in the past. PAST MEDICAL HISTORY: Brain aneurysm. ALLERGIES: as per EMR. CHEMICAL DEPENDENCY HISTORY: as per HPI. FAMILY PSYCHIATRIC/SUBSTANCE USE HISTORY: Mother has bipolar disorder SOCIAL HISTORY: Patient is and has 2 children. She lives with her . She is currently unemployed, completed college. MENTAL STATUS EXAM: General Appearance: Patient appears to be stated age is alert, irritable but cooperative. Patient appears to have fair hygiene and grooming wearing hospital gown with fair eye contact. Behavior: Patient sitting in bed Speech: Patient's speech is fluent and nonpressured. Mood/Affect: Patient reports their mood is "upset", affect is congruent, labile Suicidality/Homicidality: Patient denies having any suicidal or homicidal ideation intent or plan. Perceptions: Patient denies any visual hallucinations and denies any auditory hallucinations Though content/process: There is evidence of mild paranoia towards and thought process is tangential at times. Memory and concentration: AOX2, periods of confusion Judgment and insight: Poor IMPRESSIONS: Major neurocognitive disorder History of bipolar disorder PLAN: -At this time patient DOES NOT meet criteria for inpatient psychiatric admission. -Patient DOES NOT have decision making capacity at this time and is un able to reason through and communicate/appreciate the risks, benefits and alternatives to treatment. Discussed with patient's regarding the possibility of pursuing guardianship/DPOA given patient's altered mental status -Delirium precautions recommended with patient including - avoiding use of narcotics and FISCAL MANAGER sedatives, limit anticholinergic medications when possible, frequent re-orientation, minimize use of restraints, open window shades during the day and close them at night -Would recommend the following medication changes/additions: Increase Seroquel to 100 mg at bedtime, resume Aricept 5 mg at bedtime, continue Depakote ER 750 mg, start Zyprexa p.o./IM 5 mg every 6 hours as needed for acute safety concerns -Will continue to follow along -Please contact with any questions. 11/13/24 13:40
--- NOTE | 2024-11-13 14:05 | P.CNNES ---
History of Present Illness Consult date: 11/13/24 Requesting physician: Freedom Hernández Reason for Consult: cva History of Present Illness: Patient is a 73-year-old woman who presents to the emergency department because she was not feeling well. History is obtained from the patient's was at bedside as well as medical record. According the patient's yesterday she had appointment with her outpatient neurologist, Dr. Marina's team follow- up the results of the MRI and to obtain EEG and a psychology evaluation but the patient did not want to go to the appointment since was not feeling well. She was refusing to go to the her appointment and the felt she needed evaluation in the hospital for her mental health. According the patient has been having worsening of her mentation over the last 1 year that is progressive but she is losing her object. Forgetting things. He stated that there was an incident that he spoke to his boss in the past 1 to 2 years and patient was fixated that her boss was somebody else and he is making sexual comments about her even though that not never happened. The states that the patient has not been driving because of her daughter concerns but he feels that the patient is safe to drive. states he is occupied with work and he is a truck bench mechanic but he feels that the daughter is over escalating patient's condition. He feels that the patient had a bleach gas poisoning about 3 years ago cleaning mold for the trailer and initially she had speech difficulty in the past and that has improved. Patient does not have any history of seizure. She does have a history of bipolar. She does use marijuana. And her primary care physician wanted the patient to receive cognitive behavioral therapy. Also there is a concern by her outpatient team that she might have dementia. Patient herself was very tangential and she kept on saying "watch out for my since he lies in [facility] thinks it is all about him". Review of Systems Limited but as per HPI. Past Medical History Past Medical History: Unable to Obtain Additional Past Medical History / Comment(s): bipolar, brain aneursym History of Any Multi-Drug Resistant Organisms: None Reported Past Surgical History: No Surgical Hx Reported, Section, Hysterectomy Additional Past Surgical History / Comment(s): hysterectomy,cesarian section Past Psychological History: Bipolar Smoking Status: Never smoker Past Alcohol Use History: Occasional Past Drug Use History: None Reported - Past Family History Mother Family Medical History: CVA/TIA, Hypertension, Thyroid Disorder Additional Family Medical History / Comment(s): schizophrenia Medications and Allergies Home Medications Medication Instructions Recorded Confirmed Type Divalproex ER [Depakote ER] 750 mg PO HS 30 Days tab 05/05/21 11/13/24 Rx Donepezil [Aricept] 5 mg PO HS 11/13/24 11/13/24 History Ibuprofen [Motrin] 800 mg PO Q8H PRN 11/13/24 11/13/24 History Omeprazole [PriLOSEC] 40 mg PO DAILY 11/13/24 11/13/24 History QUEtiapine [SEROquel] 25 - 50 mg PO BID 11/13/24 11/13/24 History QUEtiapine [SEROquel] 25 mg PO DAILY PRN 11/13/24 11/13/24 History Allergies Allergy/AdvReac Type Severity Reaction Status Date / Time Penicillins Allergy Unknown Verified 11/13/24 12:00 Physical Examination - Vital Signs Vital Signs: Vital Signs Temp Pulse Resp BP Pulse Ox 11/13/24 08:19 97.8 F 80 16 161/92 97 11/12/24 17:42 98.6 F 104 H 18 155/76 96 Intake and Output 11/12/24 11/13/24 11/13/24 22:59 06:59 14:59 Other: Weight 68.039 kg General: Sitting up in a recliner chair and is not in acute distress. Neuro: Because of her cooperation. Patient is oriented to self place and time after questioning her multiple times. At times she is very tangential. She is following simple commands. Pupils are round about 3 mm and reactive to light. Visual lott are full to conversation. Extraocular moods intact no nystagmus. Normal facial sensation to touch. No facial weakness. No dysarthria. Tongue is midline moves [id number] without difficulty. Motor: Is normal. Strength is 5 out of 5 throughout. Sensation is normal to touch. Cerebellar: Normal finger to nose bilaterally. Reflexes 2+ throughout Plantars are mute. Results - Laboratory Findings CBC and BMP: 11/13/24 06:09 11/13/24 06:09 Abnormal Lab Findings: Abnormal Labs 11/12/24 11/12/24 11/13/24 19:30 22:59 06:09 WBC 10.28 H RBC 4.02 L 3.97 L Hct 36.0 L 35.7 L Eosinophils # 0.44 H 0.55 H U Tricyclic Antidepress Detected H U Marijuana (THC) Screen Detected H Assessment and Plan Assessment: This is a 73-year-old woman who is having worsening of her confusion over the last 1 year who had a neurology appointment yesterday to go over her MRI and to obtain EEG and be seen by a psychologist or the . There is a concern t hat maybe the MRI showed a stroke recently but states she denies that the feels the daughter is escalating the situation. Seems the daughter wanted petition for evaluation for the patient. Acute worsening of encephalopathy due to underlying dementia. Probable underlying dementia that is progressive. Questionable acute stroke from recent outside MRI Brain from her outpatient neurology History of bipolar Marijuana use Plan: The head is ordered by the primary team I ordered routine EEG Psychiatry is consulted Recommend obtaining records from her outpatient neurologist as well as obtaining the recent MRI report. Will defer the rest of the medical management department other specialist Plan is discussed with the patient was at bedside as well as the primary team nurse practitioner Thank you for the consultation Time with Patient: Greater than 30
--- NOTE | 2024-11-13 18:04 | P.PN ---
Subjective Progress Note Date: 11/13/24 Hospital course: Patient is a 73-year-old female with a past medical history of bipolar disorder, neurocognitive disorder, cannabinoid use, previous alcohol abuse and reported recent CVA. Patient reportedly undergoing outpatient workup with neurologist but it was reported that patient refused to go to follow-up appointment yesterday and was brought to the ER for evaluation for confusion and psychotic behavior. Upon arrival to our facility, patient underwent evaluation in the emergency department. Vital signs upon arrival show blood pressure 155/76, heart rate 104, respiratory rate 18, temp 98.6 F, and SpO2 of 96% on room air. EKG completed showing normal sinus rhythm at 71 bpm with T wave inversion in inferior leads III and aVF. Chest x-ray completed negative for acute cardiopul monary process. Labs completed and reviewed. CBC showing leukocytosis with WBC count of 10.28. BMP unremarkable. Liver profile normal findings. Urinalysis negative for infection. Urine drug screen positive for tricyclic antidepressants and marijuana. Serum alcohol level negative acetaminophen level less than 10 and salicylates less than 1.0. Patient mated under services with consultation to neurology and psychiatry. Physical exam: Patient seen and fully evaluated at bedside. She was pleasant and cooperative throughout examination. Patient able to state her name but states she is in a house and when asked what year patient states that she May or June. Patient unable to describe events leading up to her hospitalization stating she is in this house because her daughter put her here and now she has nowhere else to go. Patient denies having any headache, lightheadedness, dizziness, changes in vision or hearing, visual or auditory hallucinations, chest pain or palpitati ons, shortness of breath, or experiencing any numbness/tingling/weakness in her extremities. Patient fidgety and having a difficult time sitting still throughout examination but was pleasant and cooperative throughout entire assessment. Vital signs reviewed and stable. General: Nontoxic, no distress and appears stated age. Derm: Skin warm and dry, normal coloration for ethnicity. Head: Atraumatic, normocephalic and symmetric. Eyes: EOM's intact, no lid lag, and anicteric sclera Mouth: no lip lesions, mucus membranes moist Cardiovascular: regular rate and rhythm with normal S1S2, no murmur, positive posterior tibial pulses bilaterally, and cap refill < 2 seconds. Lungs: Respirations even, regular, and unlabored on room air. Lungs CTA bilaterally, no rhonchi, no rales, no wheezing, and no accessory muscle usage. Abdominal: soft, nontender to palpation, no guarding, no appreciable organomegaly Ext: ROM intact. No gross muscle atrophy, no edema, no contractures Neuro: Speech clear, face symmetrical and CN II-XII grossly intact with no noted focal neuro deficits. GCS 14. Psych: Alert and oriented to person only and confused to place, time, and situation. Patient is pleasant and cooperative throughout examination. Assessment and Plan of Care: Altered mental status versus delirium versus psychosis, questionable underlying dementia Bipolar disorder Cannabinoid use disorder Reported recent CVA Order placed for CT brain while awaiting records from outpatient neurologist (Dr. Putnam) including recent MRI report -Consulted neurology, discussed plan of care with Dr. Dominguez. -Consult to psychiatry, appreciate recommendations. -Neurochecks every 4 hours -Fall precautions -Continue to provide safe and supportive care with assistance and redirection as needed. -Elopement precautions -Continue Aricept 5 mg nightly, Depakote 750 mg nightly, and Seroquel 25 mg daily. -Obtain TSH with reflex free T4 Data and imaging reviewed: Labs completed and reviewed. CBC unremarkable. BMP normal findings with sodium 148, potassium 4.4 blood glucose of 92. Calcium 9.6. Magnesium 2.1. Liver profile unremarkable. Vital signs reviewed. Blood pressure 161/92, heart rate 80, respiratory rate 16, temp 97.8 F, and SpO2 of 97% on room air. CODE STATUS: Full code DVT prophylaxis: Lovenox Discussed with: Patient, RN, and neurologist Anticipated discharge date: Pending clinical course Anticipated discharge place: Home Patient was seen independently by Nurse Pracitioner. This document was prepared using [employer] dictation software. Please allow for errors in cement mason apprentice, while rare they do occur. Ric Lewis NP rendered care for this patient independently, reviewed the findings and plan as documented in the note above and agree with plan. I did not physically speak with or examine the patient on this date. Objective - Vital Signs Vital signs: Vital Signs Temp 97.8 F 11/13/24 08:19 Pulse 80 11/13/24 08:19 Resp 16 11/13/24 08:19 BP 161/92 11/13/24 08:19 Pulse Ox 97 11/13/24 08:19 FiO2 Intake & Output 11/12/24 11/13/24 11/13/24 18:59 06:59 18:59 Weight 68.039 kg - Labs CBC & Chem 7: 11/13/24 06:09 11/13/24 06:09 Labs: Abnormal Lab Results - Last 24 Hours (Table) 11/12/24 11/12/24 11/13/24 Range/Units 19:30 22:59 06:09 WBC 10.28 H (4.50-10.00) 10*3/uL RBC 4.02 L 3.97 L (4.10-5.20) 10*6/uL Hct 36.0 L 35.7 L (37.2-46.3) % Eosinophils # 0.44 H 0.55 H (0.04-0.35) 10*3/uL U Tricyclic Antidepress Detected H (NotDetected) U Marijuana (THC) Screen Detected H (NotDetected)
[2024-11-13] MEDS: amLODIPine 5 MG TAB PO STA (18:17)
[2024-11-13] MEDS: QUEtiapine 100 MG TAB PO SCH (20:23)
[2024-11-13] MEDS: MELATONIN 3 MG TABLET PO SCH (20:23)
[2024-11-13] MEDS: DONEPEZIL 5 MG TAB PO SCH (20:23)
[2024-11-13] MEDS ORDERED: QUEtiapine 25 MG TAB PO SCH (21:00)
--- NOTE | 2024-11-13 22:17 | EEG ---
ELECTROENCEPHALOGRAM REPORT CLINICAL HISTORY: This is a 73-year-old woman with history of bipolar who has altered mental status. The video EEG is obtained to evaluate for seizure epileptiform activity. RELEVANT MEDICATIONS: 1. Seroquel. 2. Aricept. 3. Depakote. EEG TYPE: A routine 21-channel EEG with video using the 10/20 electrode placement system. DESCRIPTION: Wakefulness is only obtained. During awake state, the posterior-dominant rhythm consists of [id number]-ld-[id number] voltage of 10 to 10.5 hertz activity that is well modulated and well sustained. There is no physiological stage 2 sleep architecture. There is no focal slowing. Interictal and ictal is none. ACTIVATION PROCEDURE: Photic stimulation did not evoke a posterior driving response. There is no abnormality during the photic stimulation. Hyperventilation is not performed. CLINICAL INTERPRETATION: This is a normal routine EEG during awake state. There is no focal slowing, epileptiform discharges or seizure on the EEG. A normal routine EEG does not rule out underlying epilepsy. Clinical correlation is recommended. MMLAVELL / FARIBA: [id number] / JACOB
[2024-11-13] MEDS: DIVALPROEX ER 250 MG TAB.ER.24H PO SCH (22:28)
[2024-11-14] MEDS: ENOXAPARIN 40 MG/0.4 ML SYRINGE SQ SCH (09:16)
[2024-11-14] MEDS: amLODIPine 5 MG TAB PO SCH (09:17)
--- NOTE | 2024-11-14 14:04 | P.PN ---
Progress Note - Text Progress Note Date: 11/14/24 IDENTIFYING DATA: Patient is a 73-year-old female, unemployed living with REASON FOR CONSULT: Psychosis INTERVAL HISTORY: Patient seen and evaluated. Patient reports sleeping well, denying any suicidal ideations but did express frustrations with her inability to drive stating she has been driving for many years. She continues to express paranoia with her , feeling as though he is messing with her dentures. She reports sleeping okay. states he is pursuing guardianship for patient and that he feels safe with her returning home with him. MENTAL STATUS EXAM: General Appearance: Patient appears to be stated age. Patient appears to have fair hygiene and grooming wearing hospital gown with poor eye contact. Behavior: Patient is irritable, agitated Speech: Speech is fluent and nonpressured Mood/Affect: Mood is irritable, affect is constricted Suicidality/Homicidality: Patient denies any suicidal homicidal ideations Perceptions: There are no perceptual abnormalities Though content/process: Thought content did reveal paranoia Judgment and insight: Poor IMPRESSIONS: Major neurocognitive disorder History of bipolar disorder PLAN: -At this time patient DOES NOT meet criteria for inpatient psychiatric admission. -Patient DOES NOT have decision making capacity at this time and is unable to reason through and communicate/appreciate the risks, benefits and alternatives to treatment. states he will pursue guardianship for patient given cognitive impairment -Delirium precautions recommended with patient including - avoiding use of narcotics and LACE FINISHER sedatives, limit anticholinergic medications when possible, frequent re-orientation, minimize use of restraints, open window shades during the day and close them at night -Would recommend the following medication changes/additions: Continue Seroquel 100 mg at bedtime, Aricept 5 mg at bedtime, Depakote ER 750 mg at bedtime -floor worker well service to provide patient with outpatient mental health/psychiatry resources for appropriate follow up upon discharge -Communicated plan to patient's nurse -Psychiatry will sign off at this time -Please contact with any questions.
[2024-11-14 14:26] VITALS: BP 187/83; PULSE 101; RESP 18; TEMP 98.4
--- NOTE | 2024-11-14 15:01 | P.PN ---
Subjective Progress Note Date: 11/14/24 I am following-up with the patient and continues to be confused and wants to continue driving and is upset about not driving. Psychiatry evaluated the patient and felt patient does not have decision making capacity. Objective - Vital Signs Vital signs: Vital Signs Temp 98.4 F 11/14/24 13:59 Pulse 101 H 11/14/24 13:59 Resp 18 11/14/24 13:59 BP 187/83 11/14/24 13:59 Pulse Ox 97 11/14/24 13:59 FiO2 Intake & Output 11/13/24 11/14/24 11/14/24 18:59 06:59 18:59 Intake Total 118 Balance 118 Weight 68.039 kg Intake: Oral 118 Other: Voiding Method Toilet Toilet # Voids 1 1 - Exam General: Standing up at the door and is not in acute distress. Neuro: The patient is awake, alert, oriented to self, time and states she is in the h ospital. Is following simple commands. Is tangential at times. No facial weakness. Motor: Gait is normal. The strength is 5/5 throughout. Normal tone and bulk. Some of the work-up during this hospital visit consisted of: CT head: No acute intracranial hemorrhage or midline shift. I personally reviewed CT head and appears has old stroke over the left temporal region and seems more posterior temporal region. Routine EEG: Normal. TSH: 3.6 Ammonia 12 UDS: Marijuana use and TCA are positive. Recent MRI Brain at [facility] impression date of service 11/06/2024: 1. Diffuse volume loss and moderate chronic white matter ischemic changes. There is ex-vacuo dilateion of the left atrium and left occipital horn, secondary to chronic appearing encephalomalacia diffusely involving the left temporal lobe. No acute intracranial finding. 2. Axial graident echo sequence demonstrates a punctuate focus of blooming artifact in the right cerebellum, adjacent to a chronic appearing focal lacunar infarcts, which likely represents chronic deposition of intracranial hemorrhagic products, likely associated with a prior infarct. There is also symmetric appearing bloomfing artifact in bilateral basal ganglia, likely represents benign basal ganglia calcification. Otherwise no significant foci of intracranial blooming artifact are seen. - Labs CBC & Chem 7: 11/13/24 06:09 11/13/24 06:09 Assessment and Plan Assessment: This is a 73-year-old woman who is having worsening of her confusion over the last 1 year who had a neurology appointment yesterday to go over her MRI and to obtain EEG and be seen by a psychologist or the . There is a concern that maybe the MRI showed a stroke recently but states she denies that the feels the daughter is escalating the situation. Seems the daughter wanted petition for evaluation for the patient. Acute worsening of encephalopathy probable due to underlying dementia. Per psychiatry patient does not have decision making capacity. CT head is unremarkable for acute process. Probable underlying dementia that is progressive. History of stroke and recent MRI at her outpatient MRI Brain was unremarkable for acute process. History of bipolar Marijuana use Plan: Recommend patient to follow-up with her outpatient neurologist, Dr. Marina's team and recommend following-up for neuropsych evaluation for detailed memory testing. From neurological perspective, patient cannot drive or use heavy machinery since she is at risk for herself and others. Will defer the forest fire fighter clearance of those items to her outpatient neurologist. Recommend placing the patient on ASA 81mg and lipitor 20mg for secondary stroke prophylaxis for her previous stroke and will defer the use of antiplatelets and statin to her outpatient neurologist. Psychiatry is consulted Will defer the rest of the medical management department other specialist Plan is discussed with the patient, her primary team N.P. and her nurse. Otherwise, no additional neurological work-up. Will sign off. Please reconsult if needed. Time with Patient: Less than 30
--- NOTE | 2024-11-14 18:17 | P.DS ---
Providers Date of admission: 11/12/24 21:45 Expected date of discharge: 11/14/24 Attending physician: Kaylyn Balbuena MD Consults: 11/12/24 21:43 Consult Physician Routine Consulting Provider: Psychiatry - [facility] Psychiatry Consult Reason/Comments: psychosis Do you want consulting provider notified?: Yes Consult Physician Routine Consulting Provider: Tj Dominguez Consult Reason/Comments: cva Do you want consulting provider notified?: Yes Primary care physician: Harry Mora DO Hospital Course: Discharge Diagnosis: Altered mental status versus delirium versus psychosis, questionable underlying dementia. Patient was evaluated by psychiatry and neurology. CT brain was completed negative for acute intracranial process showing diffuse age-related cerebral atrophy and chronic small vessel ischemic changes. EEG was completed showing no focal slowing, epileptiform discharges, or seizure activity. Reports obtained from outpatient [facility] reporting negative for acute intracranial finding revealing diffuse volume loss and moderate chronic white matter ischemic changes with ex-vacuo dilation of the left atrium and left occ ipital horn, secondary to chronic appearing encephalomalacia diffusely involving the left temporal lobe and axial gradient echo sequence demonstrating a punctate focus of blooming artifact in the right cerebellum adjacent to the chronic appearing focal lacunar infarcts which likely represents chronic deposition of intracranial hemorrhagic products likely associated with previous infarct along with symmetric appearing blooming artifact in bilateral basal ganglia likely representing benign basal ganglia calcification. Patient was cleared from neurology perspective recommending patient to follow-up outpatient with her primary neurologist, Dr. Marina and recommend following-up for neuropsych evaluation for detailed memory testing and further diagnosing of likely dementia. Psychiatry evaluated stating patient does not meet inpatient criteria for psychiatric admission but does not have decision-making capacity at this time and is unable to reason through and communicate the risks, benefits, and alternatives of treatment. Patient's Seroquel dose was increased to 100 mg nightly per recommendations of psychiatrist. Patient's was provided with information and recommendations on how to obtain guardianship/DPOA given patient's altered mental status. Patient discharged home with strong recommendations to follow-up with neurologist and neuropsychiatrist. Family was instructed that patient will require continuous supervision and absolutely no driving. Bipolar disorder Cannabinoid use disorder History of previous CVA Hospital Course: Patient is a 73-year-old female with a past medical history of bipolar disorder, neurocognitive disorder, cannabinoid use, previous alcohol abuse and reported recent CVA. Patient reportedly undergoing outpatient workup with neurologist but it was reported that patient refused to go to follow-up appointment yesterday and was brought to the ER for evaluation for confusion and psychotic behavior. Upon arrival to our facility, patient underwent evaluation in the emergency department. Vital signs upon arrival show blood pressure 155/76, heart rate 104, respiratory rate 18, temp 98.6 F, and SpO2 of 96% on room air. EKG completed showing normal sinus rhythm at 71 bpm with T wave inversion in inferior leads III and aVF. Chest x-ray completed negative for acute cardiopulmonary process. Labs completed and reviewed. CBC showing leukocytosis with WBC count of 10.28. BMP unremarkable. Liver profile normal findings. Urinalysis negative for infection. Urine drug screen positive for tricyclic antidepressants and marijuana. Serum alcohol level negative acetaminophen level less than 10 and salicylates less than 1.0. Patient mated under services with consultation to neurology and psychiatry.Altered mental status versus delirium versus psychosis, questionable underlying dementia. Patient was evaluated by psychiatry and neurology. CT brain was completed negative for acute intracranial process showing diffuse age-related cerebral atrophy and chronic small vessel ischemic changes. EEG was completed showing no focal slowing, epileptiform discharges, or seizure activity. Reports obtained from outpatient [facility] reporting negative for acute intracranial finding revealing diffuse volume loss and moderate chronic white matter ischemic changes with ex- vacuo dilation of the left atrium and left occipital horn, secondary to chronic appearing encephalomalacia diffusely involving the left temporal lobe and axial gradient echo sequence demonstrating a punctate focus of blooming artifact in the right cerebellum adjacent to the chronic appearing focal lacunar infarcts which likely represents chronic deposition of intracranial hemorrhagic products likely associated with previous infarct along with symmetric appearing blooming artifact in bilateral basal ganglia likely representing benign basal ganglia calcification. Patient was cleared from neurology perspective recommending patient to follow-up outpatient with her primary neurologist, Dr. Marina and recommend following-up for neuropsych evaluation for detailed memory testing and further diagnosing of likely dementia. Psychiatry evaluated stating patient does not meet inpatient criteria for psychiatric admission but does not have decision-making capacity at this time and is unable to reason through and communicate the risks, benefits, and alternatives of treatment. Patient's Seroquel dose was increased to 100 mg nightly per recommendations of psychiatrist. Patient's was provided with information and recommendations on how to obtain guardianship/DPOA given patient's altered mental status. Patient discharged home with strong recommendations to follow-up with neurologist and neuropsychiatrist. Family was instructed that patient will require continuous supervision and absolutely no driving. Physical exam: Vital signs reviewed and stable. General: Nontoxic, no distress and appears stated age. Derm: Skin warm and dry, normal coloration for ethnicity. Head: Atraumatic, normocephalic and symmetric. Eyes: EOM's intact, no lid lag, and anicteric sclera Mouth: no lip lesions, mucus membranes moist Cardiovascular: regular rate and rhythm with normal S1S2, no murmur, positive posterior tibial pulses bilaterally, and cap refill < 2 seconds. Lungs: Respirations even, regular, and unlabored on room air. Lungs CTA bilaterally, no rhonchi, no rales, no wheezing, and no accessory muscle usage. Abdominal: soft, nontender to palpation, no guarding, no appreciable organomegaly Ext: ROM intact. No gross muscle atrophy, no edema, no contractures Neuro: Speech clear, face symmetrical and CN II-XII grossly intact with no noted focal neuro deficits. GCS 14. Psych: Alert and oriented to person only and confused to place, time, and situation. Patient is pleasant and cooperative throughout examination. A total of 39 minutes of time were spent preparing this complex discharge summary. Pt was discharged on 11/14/2024 at 11:18 AM. Patient was seen independently by Nurse Practitioner. This document was prepared using [employer] dictation software. Please allow for errors in engraver hand soft metals while rare they do occur. Ric Lewis NP rendered care for this patient independently, reviewed the findings and plan as documented in the note above. I did not physically speak with or examine the patient on this date. Patient Condition at Discharge: Stable Plan - Discharge Summary Discharge Rx Participant: Yes New Discharge Prescriptions: New QUEtiapine [SEROquel] 100 mg PO HS 30 Days #30 tab amLODIPine [Norvasc] 5 mg PO DAILY 30 Days #30 tab Continue Ibuprofen [Motrin] 800 mg PO Q8H PRN PRN Reason: Pain Donepezil [Aricept] 5 mg PO HS Divalproex ER [Depakote ER] 750 mg PO HS 30 Days tab Omeprazole [PriLOSEC] 40 mg PO DAILY Discontinued QUEtiapine [SEROquel] 25 mg PO DAILY PRN PRN Reason: Anxiety/Agitation QUEtiapine [SEROquel] 25 - 50 mg PO BID Discharge Medication List Divalproex ER [Depakote ER] 750 mg PO HS 30 Days tab 05/05/21 [Rx] Donepezil [Aricept] 5 mg PO HS 11/13/24 [History] Ibuprofen [Motrin] 800 mg PO Q8H PRN 11/13/24 [History] Omeprazole [PriLOSEC] 40 mg PO DAILY 11/13/24 [History] QUEtiapine [SEROquel] 100 mg PO HS 30 Days #30 tab 11/14/24 [Rx] amLODIPine [Norvasc] 5 mg PO DAILY 30 Days #30 tab 11/14/24 [Rx] Follow up Appointment(s)/Referral(s): Harry Mora DO [Primary Care Provider] - 1-2 days Patient Instructions/Handouts: Mild Cognitive Impairment: New Diagnosis (DC) Activity/Diet/Wound Care/Special Instructions: Activity: As tolerated. Patient requires continuous supervision. Diet: Heart healthy and carb consistent diet. Special Instructions: Take all of your medications as directed and remember to keep all of your doctor's appointments and follow-up as needed. Recommend outpatient follow-up with your neurologist as scheduled as well as evaluation by neuropsychiatrist for further diagnosing and treatment of your neurocognitive disorder. ABSOLUTELY NO DRIVING!!! Thank you for allowing us to participate in your care, it was truly a pleasure having you for our patient!!! Discharge/Stand Alone Forms: Who Do I Call?, Community Resources, Help In The Home, Outpatient Counseling, Outpatient Therapy List Discharge Disposition: HOME SELF-CARE Care Plan Goals (MU): Follow up with your neurologist to revisit driving privileges when condition improves.
== END 2024-11-14 15:03 | disposition home or self-care (01) ==
LOC: EC 17:39 → 6NMEDSUR 21:45
PROVIDERS: ADMIT Internal Medicine; ATTEND Internal Medicine
DX: F31.9 Bipolar disorder, unspecified (principal); F03.93 Unspecified dementia, unspecified severity, with mood disturbance; F03.92 Unspecified dementia, unspecified severity, with psychotic disturbance; D72.829 Elevated white blood cell count, unspecified; G93.40 Encephalopathy, unspecified; Z86.73 Personal history of transient ischemic attack (TIA), and cerebral infarction without residual deficits; Z79.899 Other long term (current) drug therapy; Z88.0 Allergy status to penicillin
CPT/HCPCS: 96372 ×2; 82075; 96374; 99285; 95816; 93005; 80053 ×2; 84443; 82140; 83690; 83735; 84100; 85025 ×2; 81003; 80306; 80143; 80179; 71046; 70450; G0378 ×3; G0480; J2060; J1630; J1650; 80320